=== PATIENT | male | born 1930 | race Caucasian/White ===

== ENCOUNTER → 2016-08-15 | Outpatient (CLI) | payer MEDICARE, OTHER ==
--- NOTE | 2016-08-16 05:49 | REP ---
ABDOMINAL SERIES: Supine and erect views of the abdomen are performed. There is no free air. There is no evidence of small bowel obstruction. There is scattered air throughout the GI tract. The colon is not significantly distended. Scattered vascular calcifications are present. There is curvilinear calcification in the region of the mid to distal abdominal aorta raising the possibility of abdominal aortic aneurysm. There are diffuse degenerative changes of the spine. An accompanying view of the chest demonstrates cardiomegaly. There are interstitial and alveolar opacities in each lung base representing infiltrates, either bibasilar pneumonic infiltrates or pulmonary edema. There do appear to be small pleural effusions. IMPRESSION: No evidence of free air or obstruction. Possible abdominal aortic aneurysm. In the chest, there is cardiomegaly with apparent bibasilar interstitial and alveolar infiltrates with small effusions. The findings may be on the basis of basilar pneumonic infiltrates or pulmonary edema. Unreviewed
== END ==
LOC: M ADAMS 15:42
PROVIDERS: ATTEND Physician Assistant Medical
DX: K59.01 Slow transit constipation (principal); I51.7 Cardiomegaly; J98.4 Other disorders of lung

== ENCOUNTER → 2016-08-15 | Outpatient (REF) | payer MEDICARE, OTHER ==
[2016-08-15 19:15] LABS: ALBUMIN 2.6 GM/DL (3.2-5.2); ALBUMIN/GLOBULIN RATIO 0.62 (1.00-1.93); ALKALINE PHOSPHATASE 162 U/L (45-117); ALT/SGPT 34 U/L (12-78); ANION GAP 12 MEQ/L (8-16); AST/SGOT 31 U/L (15-37); BILIRUBIN,TOTAL 0.5 MG/DL (0.2-1.0); BLOOD UREA NITROGEN 26 MG/DL (7-18); CALCIUM LEVEL 8.7 MG/DL (8.8-10.2); CARBON DIOXIDE LEVEL 29 MEQ/L (21-32); CHLORIDE LEVEL 97 MEQ/L (98-107); CREATININE FOR GFR 1.07 MG/DL (0.70-1.30); GLOMERULAR FILTRATION RATE > 60.0 (>35); GLUCOSE, FASTING 122 MG/DL (83-110); POTASSIUM SERUM 4.6 MEQ/L (3.5-5.1); SODIUM LEVEL 138 MEQ/L (136-145); TOTAL PROTEIN 6.8 GM/DL (6.4-8.2)
[2016-08-15 19:57] LABS: BASO # 0.1 K/mm3 (0.0-0.2); BASO % 0.7 % (0.0-1.0); EOS # 0.1 K/mm3 (0.0-0.50); EOS % 1.3 % (0.0-3.0); LARGE UNSTAINED CELL # 0.1 K/mm3 (0.0-0.4); LARGE UNSTAINED CELL % 1.1 % (0.0-4.0); LYMPH # 1.3 K/mm3 (1.5-4.5); LYMPH % 11.5 % (24.0-44.0); MEAN CORPUSCULAR HEMOGLOBIN 29.4 pg (27.0-33.0); MEAN CORPUSCULAR HGB CONC 30.5 g/dl (32.0-36.5); MEAN CORPUSCULAR VOLUME 96.4 fl (80.0-96.0); MONO # 0.7 K/mm3 (0.0-0.8); MONO % 6.8 % (0.0-5.0); NEUTROPHILS # 7.9 K/mm3 (1.8-7.7); NEUTROPHILS % 78.7 % (36.0-66.0); PLATELET COUNT, AUTOMATED 540 k/mm3 (150-450); RED CELL DISTRIBUTION WIDTH 13.2 % (11.5-14.5)
== END ==
LOC: M SFHCADAM 15:22
PROVIDERS: ATTEND Physician Assistant Medical
DX: K59.01 Slow transit constipation (principal); R35.8 Other polyuria; R41.0 Disorientation, unspecified

== ENCOUNTER 2016-08-18 11:11 | Inpatient (IN) | payer MEDICARE, OTHER ==
[~2016-08-18] VITALS: Ht 182.9 cm; Wt 110.8 kg
[2016-08-18 11:54] LABS: BASO % 0.2 % (0.0-1.0); EOS % 0.2 % (0.0-3.0); LARGE UNSTAINED CELL # 0.1 K/mm3 (0.0-0.4); LARGE UNSTAINED CELL % 1.1 % (0.0-4.0); LYMPH # 0.7 K/mm3 (1.5-4.5); LYMPH % 8.1 % (24.0-44.0); MEAN CORPUSCULAR HEMOGLOBIN 29.7 pg (27.0-33.0); MEAN CORPUSCULAR HGB CONC 31.2 g/dl (32.0-36.5); MEAN CORPUSCULAR VOLUME 95.3 fl (80.0-96.0); MONO # 0.4 K/mm3 (0.0-0.8); MONO % 4.6 % (0.0-5.0); NEUTROPHILS # 7.1 K/mm3 (1.8-7.7); NEUTROPHILS % 85.8 % (36.0-66.0); PLATELET COUNT, AUTOMATED 536 k/mm3 (150-450); RED CELL DISTRIBUTION WIDTH 12.3 % (11.5-14.5); WHITE BLOOD COUNT 8.3 K/mm3 (4.0-10.0)
[2016-08-18 12:17] LABS: ALBUMIN 2.5 GM/DL (3.2-5.2); ALBUMIN/GLOBULIN RATIO 0.54 (1.00-1.93); ALKALINE PHOSPHATASE 117 U/L (45-117); ALT/SGPT 25 U/L (12-78); ANION GAP 10 MEQ/L (8-16); AST/SGOT 19 U/L (15-37); BILIRUBIN,DIRECT 0.2 MG/DL (0.0-0.2); BILIRUBIN,TOTAL 0.5 MG/DL (0.2-1.0); BLOOD UREA NITROGEN 22 MG/DL (7-18); CALCIUM LEVEL 8.3 MG/DL (8.8-10.2); CARBON DIOXIDE LEVEL 31 MEQ/L (21-32); CHLORIDE LEVEL 99 MEQ/L (98-107); CREATININE FOR GFR 1.03 MG/DL (0.70-1.30); GLOMERULAR FILTRATION RATE > 60.0 (>35); GLUCOSE, FASTING 105 MG/DL (83-110); SODIUM LEVEL 140 MEQ/L (136-145); TOTAL PROTEIN 7.1 GM/DL (6.4-8.2)
--- NOTE | 2016-08-18 12:20 | REP ---
CT HEAD WITHOUT CONTRAST: HISTORY: Altered mental status. COMPARISON: MR dated 05/12/2003. Areas of decreased attentuation are present in the periventricular and subcortical white matter. This represents small vessel ischemic disease. There is no intraparenchymal hemorrhage, mass, or midline shift. The ventricular system and cortical sulci as well as subarachnoid space in the posterior fossa are dilated consistent with moderate volume loss. There is no extracerebral collection. The visualized sinuses are clear. IMPRESSION: 1. Small vessel ischemic disease. 2. Moderate volume loss. Signed by Theodore Turk MD 08/18/2016 12:34 P
--- NOTE | 2016-08-18 12:25 | REP ---
CHEST TWO VIEWS: HISTORY: Chest pain. COMPARISON: 06/29/2016 An increase in interstitial markings is present in the lower lobes consistent with chronic interstitial fibrosis. A small left pleural effusion is present. The cardiac silhouette is enlarged. The pulmonary vasculature is prominence. IMPRESSION: 1. Bibasilar chronic interstitial fibrosis. 2. Small left pleural effusion 3. Cardiomegaly. Signed by Theodore Turk MD 08/18/2016 12:34 P
[2016-08-18] MEDS ORDERED: METHY25TA PO (15:32)
[2016-08-18] MEDS ORDERED: INSUDET SC (15:32)
[2016-08-18] MEDS ORDERED: METF500T PO (15:32)
[2016-08-18] MEDS ORDERED: BENA25TA9 PO (15:32)
[2016-08-18] MEDS ORDERED: NITR4TASL SL (15:32)
[2016-08-18] MEDS ORDERED: SIMV10TA2 PO (15:32)
[2016-08-18] MEDS ORDERED: JANU100T PO (15:32)
[2016-08-18] MEDS ORDERED: ISOS120T4 PO (15:32)
[2016-08-18] MEDS ORDERED: METO25TAB PO (15:32)
[2016-08-18 16:23] LABS: AMPHETAMINES LEVEL URINE NEGATIVE (NEGATIVE); BENZODIAZEPINES URINE NEGATIVE (NEGATIVE); COCAINE METABOLITE URINE NEGATIVE (NEGATIVE); CONTROL LINE INT CTR LINE PRESENT; METHADONE URINE NEGATIVE (NEGATIVE); OPIATES URINE NEGATIVE (NEGATIVE); TRICYCLIC ANTIDEPRESS URINE NEGATIVE (NEGATIVE)
[2016-08-18] MEDS ORDERED: GLUCOSE 4 GM CHEW TABLET PO PRN (17:15)
[2016-08-18] MEDS ORDERED: DEXTROSE 50% 50 ML SYRINGE IV PRN (17:15)
[2016-08-18] MEDS ORDERED: GLUCAGON FOR INJ 1 MG VIAL (J1610) SC PRN (17:15)
[2016-08-18 18:15] LABS: INR 1.15
--- NOTE | 2016-08-18 19:31 | ECGEPIP ---
Stationary ECG Study [facility] - ED Test Date: 2016-08-18 Pat Name: ANAMARIA SOLARES Department: Room: - Gender: M Processing Associate: gloria : 1930 Requested By: Nicole Galan Order Number: [id number] Reading MD: Nicole Galan Measurements Intervals [place] Rate: 71 P: 18 CT: 159 QRS: 11 QRSD: 106 T: 42 QT: 406 QTc: 444 Interpretive Statements SINUS RHYTHM NSTTW ABNORMALITY LOW VOLTAGE LIMB Electronically Signed On 08-18-2016 19:30:54 EST by Nicole Galan
--- NOTE | 2016-08-18 20:13 | HPE ---
DATE OF ADMISSION: 08/18/2016 PRIMARY CARE PROVIDER: Sania James CHIEF COMPLAINT: Altered mental status. HISTORY OF THE PRESENT ILLNESS: Mr. Ortega is an 86-year-old male with a past medical history of uncontrolled diabetes, noncompliance, hypertension, who was brought in today by emergency medical services (EMS) after found to be down at home. The patient was reportedly in his normal state of health up until this week. This morning, after waking up at 7 or 8, noticed that he made some growling noises coming out from his mouth with tongue hanging out. Family had difficulty waking him up. Fingerstick glucose was checked at that time and was 45. EMS was immediately called and was given one amp of D50 which improved his fingerstick to 126. Reportedly has had similar episodes in the last 3 mornings, when he was found down and incoherent with his words. With each episode, after administration of either a donut, coffee or orange juice, he would perk up approximately 15 to 20 minutes later. The patient reportedly has been complaining of some sort of obstruction and because of concern for his obstruction, his oral intake has cut down significantly. Despite his decreased po intake, he continues to administer Levemir 130 units at nighttime along with his other hypoglycemic agents. Complains of headache; however, it is unclear whether this is new or chronic for him. The patient himself is a poor historian and is unable to offer any reliable history. Denies any chest pain, shortness of breath, fevers. Reports more chills recently in the last 2-3 days. No diarrhea, constipation, urinary issues. No sick contact. PAST MEDICAL HISTORY Type 2 diabetes. Hypertension. Medical noncompliance. Coronary artery disease, status post myocardial infarction ([place]), stent placement is unclear. Obesity. SURGICAL HISTORY: Appendectomy. Left thumb amputated. Cataract surgery. ALLERGIES: PENICILLIN hives. HOME MEDICATIONS: - Benadryl 25 mg by mouth nightly - Levemir 130 units subcu nightly - isosorbide mononitrate 120 mg by mouth daily - metformin 1000 mg by mouth twice a day - methyldopa 250 mg by mouth twice a day - metoprolol tartrate 25 mg by mouth twice a day - Nitrostat 0.4 sublingual as needed - Zocor 10 mg by mouth nightly - Januvia 100 mg by mouth daily There have not been any changes to his medications. FAMILY HISTORY: Mother from diabetes, hypertension, and heart disease. Father of unknown medical condition. SOCIAL HISTORY: The patient is a former smoker. He used to smoke for greater than 20 years two packs a day, quit more than 20 years ago. No alcohol or drug use. He lives at home with his . No pets. No recent travel. 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 REVIEW OF SYSTEMS: Unreliable due to the patient's altered mental status, though he denied any chest pain, shortness of breath, new cough, abnormal bleeding, bruising. Family also recently noticed the patient to be more edematous on his upper extremity. PHYSICAL EXAMINATION: VITAL SIGNS: Blood pressure highest in the emergency room (ER) 193/126, heart rate 84, respiratory rate 18, temperature 98.2, pulse oximetry 96% on room air. Body mass index (BMI) 32. GENERAL: The patient is lying in bed, approximately 30 degrees angle, comfortable, no acute respiratory distress. Family at bedside. Alert, awake, oriented to person, place but not time, thinks he is 66 years old but knows he is at [facility] and the president is Mendez. HEENT: Normocephalic, atraumatic. Moist oral mucosa. Edentulous. Appears to have some asymmetry of his face, though this reportedly is chronic for the patient, per family. Extraocular movements intact. NECK: Supple. Large neck. Could not appreciate jugular venous distention (JVD). CHEST: Symmetric chest rise. No accessory muscle use. Breath sounds did diminish with occasional crackle, most significant left lung base. HEART: Regular rate and rhythm. S1, S2 present. ABDOMEN: Obese but nontender, nondistended. Bowel sounds distant. No guarding, no rebound. Difficult to appreciate organomegaly secondary to body habitus. EXTREMITIES: He has anasarca, 2+ pitting. NEUROLOGICAL: Strength is 5/5, [id number] is delayed, heel-to-toe is delayed. DTRs 2/4. Sensory is intact. Negative Babinski. Did not assess gait. LABORATORY DATA: WBC 8.3, hemoglobin 11.4, hematocrit 36.7, changed compared to his baseline. Platelets 536. Sodium 140, potassium 4, chloride 99, carbon dioxide 31, BUN 22, creatinine 1.03, glucose 105, calcium 8.3. Liver profile normal. Ammonia level 20. Troponin first set is negative. TSH is normal 1.05. Albumin 2.5. Urine culture pending. UA: 2+ protein, trace ketone, 2+ urobilinogen, leukocyte esterase is trace. CT head showed small vessel ischemic disease, moderate volume loss. Chest x-ray showed chronic interstitial fibrosis with small left pleural effusion, cardiomegaly. IMPRESSION AND PLAN: Mr. Ortega is an 86-year-old male with past medical history of type 2 diabetes who was brought in due to altered mental status. 1. Encephalopathy. Etiology unclear. Could be due to his hypoglycemic episodes versus cerebrovascular accident versus infectious versus cardiac versus other. It is unclear why he has sudden change in his mentation in the last week causing him to not have a good appetite. So far, CT of the head was unrevealing. Check blood culture, urine culture for underlying infectious etiology though suspect that he likely does not have underlying urinary tract infection based upon his urine culture. Continue to trend troponin. Will continue to follow the patient closely in the progressive care unit. Neurologic checks. Fall precautions. 2. Type 2 diabetes with recurrent hypoglycemia. Despite not having a good appetite, he continued to take his Levemir 130 units nightly, which can or worsen his encephalopathy. Hold home dose hypoglycemic agent at this time. Continue insulin sliding scale and carbohydrate diet. His most recent hemoglobin A1c check was in June 2016. At that time, it was 10.9. 3. Anasarca. It is unclear whether or not he has any underlying liver disease. His albumin is low. We will check prealbumin level and also coagulation tests (coags). Reportedly this is new per family. Have also checked echocardiogram to further evaluate the cause for anasarca. 4. History of hypertension. Resume his home medication with hold parameters. 5. Hyperglycemia. Continue home dose of Zocor. 6. Noncompliance. Unfortunately will complicate medical management. 7. Obesity. Will complicate medical care. 8. Deep vein thrombosis (DVT) prophylaxis. Sequential compression device (SCD), thromboembolism deterrents (TEDs) and heparin. DISPOSITION: Due to the patient's condition, we expect his stay to be greater than two midnights. My preceptor for this patient encounter was Dr. Lee. The preceptor was physically present in the building during the encounter and was fully available. As needed, all aspects of the patient interview, examination, medical decision making process, and medical care plan development were reviewed and approved by the preceptor. The preceptor is aware and concurs with the plan as stated in the body of this note and will attest to such by his/her cosignature. MARYBETH
--- NOTE | 2016-08-18 20:31 | EDDOCDS ---
Nurse's Notes [facility] Name: Tomi Solares Age: 86 yrs Sex: Male : 1930 Arrival Date: 08/18/2016 Time: 11:11 Bed 19 Private MD: Sania James Diagnosis: Altered mental status, unspecified Presentation: 08/18 11:19 Presenting complaint: EMS states: "When we got to the house the pt was in bed. Family mb9 is questing if he has dementia. They said he was a diabetic and is usually high. We checked a sugar and got 50. We gave him 1 amp of D50 and the repeat sugar was 126. I just checked another sugar at 11 and is was 131.". Adult Sepsis Screening: Suicide/Homicide risk assessment- the patient denies having any suicidal and/or homicidal ideations and does not present with any other emotional, behavioral or mental health complaints. Status: Patient is not a service counselor or dependent. Transition of care: patient was not received from another setting of care. 11:19 Acuity: IRENE Level 3 mb9 11:19 Method Of Arrival: Ambulance mb9 19:56 Adult Sepsis Screening: Patient's respiratory rate is less than 22. Systolic blood mb9 pressure is greater than 100. Patient has a qSOFA score of 0- Negative Sepsis Screen. Triage Assessment: 11:25 General: Appears in no apparent distress, Behavior is cooperative. Neurological: Level mb9 of Consciousness is. Historical: - Allergies: PENICILLINS; - Home Meds: 1. Nitrostat 0.6 mg SL subl 1 tab every 5 minutes 2. isosorbide mononitrate 120 mg Oral Tb24 1 tab once daily (Last dose: 08/17/2016) 3. Januvia 100 mg oral tab 1 tab once daily (Last dose: 08/17/2016) 4. metformin 500 mg Oral Tb24 2 tabs 2 times per day (Last dose: 08/17/2016) 5. methyldopa 250 mg Oral tab 1 tab 2 times per day (Last dose: 08/17/2016) 6. metoprolol tartrate 25 mg Oral tab 1 tab 2 times per day (Last dose: 08/17/2016) 7. simvastatin 10 mg Oral tab 1 tab once daily (Last dose: 08/17/2016) 8. Levemir 100 unit/mL subcutaneous soln 130 unit daily (Last dose: 08/17/2016) - PMHx: CHF; Hypertension; Type 2 DM, poorly controlled; - PSHx: Appendectomy; - Family history: No immediate family members are acutely ill. - Social history: Smoking status: Patient states former smoker of tobacco. No barriers to communication noted, The patient speaks fluent Georgian. - : The pt / caregiver states he / she is not on anticoagulants. Home medication list is obtained from the facility MAR, Note pt appears confused. family on the way to the Er. will verify med list with them. - Exposure Risk Screening:: None identified. Screenin:54 Screening information is obtained from family members. Fall risk: At risk due to age. mb9 Assistance ADL's: Requires assistance with meal preparation, this assistance is provided by family members, housework, assistance is provided by family members, medication administration, assistance is provided by family members. Abuse/DV Screen: The patient / caregiver reports he/she is: not in a situation that causes fear, pain or injury. Nutritional screening: No deficits noted. home support is adequate. 19:56 Advance Directives: There is no active DNR order. mb9 Assessment: 11:53 General: family at the bedside reports pt has had a slow mental decline over the last mb9 month. family also reports pt has been reluctant to eat because he believes he has an intestinal blockage. family reports has been worked up for this and it was negative. family reports that even though he is not eating he still takes his insulin as ordered. . 13:00 Reassessment: Patient appears in no apparent distress at this time. Patient states mb9 symptoms have improved. General: Appears in no apparent distress, comfortable, Behavior is fussy. Cardiovascular: Rhythm is regular. Respiratory: Airway is patent Respiratory effort is even, unlabored. 13:58 Reassessment: Patient appears in no apparent distress at this time. Adult Sepsis mb9 Screening: The patient does not have new or worsening altered mentation. Patient's respiratory rate is less than 22. Systolic blood pressure is greater than 100. Patient has a qSOFA score of 0- Negative Sepsis Screen. General: Appears in no apparent distress, comfortable, Behavior is appropriate for age, cooperative. Respiratory: Airway is patent Respiratory effort is even, unlabored. 14:47 Reassessment: Patient appears in no apparent distress at this time. Patient states mb9 symptoms have improved. General: Appears in no apparent distress, comfortable, Behavior is appropriate for age, cooperative. Respiratory: Airway is patent Respiratory effort is even, unlabored. 15:49 Reassessment: Patient appears in no apparent distress at this time. Patient states mb9 symptoms have improved. General: Appears in no apparent distress, comfortable, Behavior is appropriate for age, cooperative. Respiratory: Airway is patent Respiratory effort is. 17:09 Reassessment: Patient appears in no apparent distress at this time. Patient states mb9 symptoms have improved. pt able to stand with max assist at the bedside. . Respiratory: Airway is patent Respiratory effort is even, unlabored. 19:54 Reassessment: Patient appears in no apparent distress at this time. Patient states mb9 symptoms have improved. Adult Sepsis Screening: The patient does not have new or worsening altered mentation. Patient's respiratory rate is less than 22. Systolic blood pressure is greater than 100. Patient has a qSOFA score of 0- Negative Sepsis Screen. General: Appears in no apparent distress, comfortable, Behavior is appropriate for age, cooperative. Respiratory: Airway is patent Respiratory effort is even, unlabored. Vital Signs: 11:28 BP 164 / 90 RA Sitting (auto/reg); Pulse 74; Resp 18; Temp 98.2(O); Pulse Ox 96% on jrd R/A; Weight 109.32 kg (R); Height 6 ft. 0 in. (182.88 cm) (R); 12:33 Pulse 84 MON; mb9 12:33 BP 193 / 126 (auto/); mb9 12:48 BP 178 / 104 (auto/); mb9 12:48 Pulse 78 MON; Resp 18; Pulse Ox 97% ; mb9 13:03 BP 194 / 113 (auto/); mb9 13:03 Pulse 70 MON; Pulse Ox 96% ; mb9 13:18 Pulse 72 MON; Pulse Ox 96% ; mb9 13:18 BP 180 / 107 (auto/); mb9 13:33 Pulse 76 MON; mb9 13:33 BP 185 / 108 (auto/); mb9 13:48 Pulse 72 MON; Pulse Ox 100% ; mb9 13:48 BP 184 / 99 (auto/); mb9 14:03 Pulse 74 MON; Pulse Ox 98% ; mb9 14:03 BP 175 / 98 (auto/); mb9 14:18 Pulse 76 MON; Pulse Ox 97% ; mb9 14:18 BP 178 / 91 (auto/); mb9 14:33 Pulse 74 MON; Pulse Ox 97% ; mb9 14:33 BP 179 / 88 (auto/); mb9 14:48 Pulse 78 MON; Pulse Ox 97% ; mb9 14:48 BP 177 / 94 (auto/); mb9 15:03 Pulse 78 MON; Pulse Ox 99% ; mb9 15:03 BP 194 / 93 (auto/); mb9 15:18 Pulse 72 MON; Pulse Ox 98% ; mb9 15:18 BP 187 / 95 (auto/); mb9 15:33 Pulse 84 MON; Pulse Ox 98% ; mb9 15:33 BP 172 / 78 (auto/); mb9 15:47 Pulse 90 MON; Pulse Ox 97% ; mb9 15:48 BP 167 / 86 (auto/); mb9 16:03 Pulse 78 MON; Pulse Ox 96% ; mb9 16:03 BP 139 / 79 (auto/); mb9 16:18 Pulse 80 MON; Pulse Ox 97% ; mb9 16:18 BP 142 / 74 (auto/); mb9 16:32 Pulse 80 MON; Pulse Ox 97% ; mb9 16:33 BP 146 / 77 (auto/); mb9 16:48 Pulse 78 MON; Pulse Ox 97% ; mb9 16:48 BP 135 / 73 (auto/); mb9 17:03 Pulse 90 MON; Pulse Ox 98% ; mb9 17:03 BP 166 / 84 (auto/); mb9 18:37 BP 157 / 90; Pulse 78; Resp 18; Temp 98; Pulse Ox 97% on R/A; ld5 19:09 BP 146 / 70 (auto/); lf1 19:09 Pulse 78 MON; Pulse Ox 95% ; lf1 19:32 BP 164 / 93 (auto/); mb9 19:32 Pulse 78 MON; Resp 18; Pulse Ox 97% ; mb9 20:22 Pulse 76 MON; Pulse Ox 96% ; lf1 11:28 Body Mass Index 32.69 (109.32 kg, 182.88 cm) jrd 11:28 Patient unable to give a pain scale rating jrd ED Course: 11:13 Patient visited by Araiza, Lauren, Hand Inserter Operator. lbd 11:13 Sania James PA-C is Private Physician. lbd 11:13 Patient moved to Waiting lbd 11:13 Patient moved to 19 lbd 11:20 Nicole Galan MD is Attending Physician. sd1 11:21 Triage Initiated mb9 11:22 Patient visited by Nicole Galan MD. sd1 11:29 Patient visited by Nahun Dukes PCA. jrd 11:32 EKG done. (by ED staff). Reviewed by Nicole Galan MD. nb2 11:38 Patient visited by Tejal Dior. nb2 11:55 Maintain field IV. Dressing intact. Good blood return noted. Site clean & dry. Gauge & mb9 site: 20 gauge left ac.. 12:36 Urine Culture Sent. jrd 12:36 UA Sent. jrd 13:02 CT Head Without Contrast Returned. EDMS 13:02 Chest, 2 View (pa\\E\\lat) Returned. EDMS 13:25 [facility] Payment Agreement was scanned into [employer] and attached to record. mm15 13:50 Patient visited by Tejal Dior. nb2 14:49 Patient visited by Esau Membreno RN. mb9 14:53 The patient / caregiver is instructed regarding the plan of care and ED course. pt mb9 given a boxed lunch. 15:15 Urine Toxicology Sent. mb9 15:16 Nghia Lee is Hospitalizing Provider. sd1 19:42 EKG-ADULT Returned. EDMS 19:44 Discontinued IV lock intact, bleeding controlled, pressure dressing applied, No mb9 redness/swelling at site. No procedures done that require assistance. 19:44 Inserted saline lock: 20 gauge in right forearm and blood collected. The patient mb9 tolerated the procedure well. Administered Medications: 13:30 Drug: NS 0.9% 1000 ml [sodium chloride 0.9 % injection solution] Route: IV; Rate: 150 mb9 mL/hr; Site: left antecubital; Point of Care Testing: Blood Glucose: 14:51 Blood Glucose: 69 mg/dL; mb9 14:51 Dr Sheridan aware. mb9 Ranges: Intake: 14:51 PO: 240.00ml (Juice); Total: 240.00ml. mb9 Output: 12:37 Urine: 440.00ml; Total: 440.00ml. jrd Order Results: Lab Order: CBC with Diff; SPEC'M 08/18/16 11:34 Test: WHITE BLOOD COUNT; Value: 8.3; Range: 4.0-10.0; Units: K/mm3; Status: F Test: RED BLOOD COUNT; Value: 3.85; Range: 4.30-6.10; Abnormal: Below low normal; Units: M/mm3; Status: F Test: HEMOGLOBIN; Value: 11.4; Range: 14.0-18.0; Abnormal: Below low normal; Units: g/dl; Status: F Test: HEMATOCRIT; Value: 36.7; Range: 42.0-52.0; Abnormal: Below low normal; Units: %; Status: F Test: MEAN CORPUSCULAR VOLUME; Value: 95.3; Range: 80.0-96.0; Units: fl; Status: F Test: MEAN CORPUSCULAR HEMOGLOBIN; Value: 29.7; Range: 27.0-33.0; Units: pg; Status: F Test: MEAN CORPUSCULAR HGB CONC; Value: 31.2; Range: 32.0-36.5; Abnormal: Below low normal; Units: g/dl; Status: F Test: RED CELL DISTRIBUTION WIDTH; Value: 12.3; Range: 11.5-14.5; Units: %; Status: F Test: PLATELET COUNT, AUTOMATED; Value: 536; Range: 150-450; Abnormal: Above high normal; Units: k/mm3; Status: F Test: NEUTROPHILS %; Value: 85.8; Range: 36.0-66.0; Abnormal: Above high normal; Units: %; Status: F Test: LYMPH %; Value: 8.1; Range: 24.0-44.0; Abnormal: Below low normal; Units: %; Status: F Test: MONO %; Value: 4.6; Range: 0.0-5.0; Units: %; Status: F Test: EOS %; Value: 0.2; Range: 0.0-3.0; Units: %; Status: F Test: BASO %; Value: 0.2; Range: 0.0-1.0; Units: %; Status: F Test: LARGE UNSTAINED CELL %; Value: 1.1; Range: 0.0-4.0; Units: %; Status: F Test: NEUTROPHILS #; Value: 7.1; Range: 1.8-7.7; Units: K/mm3; Status: F Test: LYMPH #; Value: 0.7; Range: 1.5-4.5; Abnormal: Below low normal; Units: K/mm3; Status: F Test: MONO #; Value: 0.4; Range: 0.0-0.8; Units: K/mm3; Status: F Test: EOS #; Value: 0.0; Range: 0.0-0.50; Units: K/mm3; Status: F Test: BASO #; Value: 0.0; Range: 0.0-0.2; Units: K/mm3; Status: F Test: LARGE UNSTAINED CELL #; Value: 0.1; Range: 0.0-0.4; Units: K/mm3; Status: F Lab Order: Cardiac Injury Profile; SPEC'M 08/18/16 11:34 Test: CPK CREATINE PHOSPHOKINASE; Value: 25; Range: 39-308; Abnormal: Below low normal; Units: U/L; Status: F Test: CK-MB VALUE MASS; Value: 1.0; Range: 0.0-3.6; Units: NG/ML; Status: F Test: MB/CK RELATIVE INDEX; Value: 4.00; Range: < OR =4; Status: F Test Note: ; DIAGNOSIS CRITERIA MMB ng/ml Relative Index (RI) NON-AMI < or = 5 N/A [place] > 5 < or = 4 AMI > 5 > 4 Lab Order: Liver Profile; SPEC'M 08/18/16 11:34 Test: AST/SGOT; Value: 19; Range: 15-37; Units: U/L; Status: F Test: ALT/SGPT; Value: 25; Range: 12-78; Units: U/L; Status: F Test: ALKALINE PHOSPHATASE; Value: 117; Range: 45-117; Units: U/L; Status: F Test: BILIRUBIN,TOTAL; Value: 0.5; Range: 0.2-1.0; Units: MG/DL; Status: F Test: BILIRUBIN,DIRECT; Value: 0.2; Range: 0.0-0.2; Units: MG/DL; Status: F Test: TOTAL PROTEIN; Value: 7.1; Range: 6.4-8.2; Units: GM/DL; Status: F Test: ALBUMIN; Value: 2.5; Range: 3.2-5.2; Abnormal: Below low normal; Units: GM/DL; Status: F Test: ALBUMIN/GLOBULIN RATIO; Value: 0.54; Range: 1.00-1.93; Abnormal: Below low normal; Status: F Lab Order: MED Profile; SPEC'M 08/18/16 11:34 Test: GLUCOSE, FASTING; Value: 105; Range: 83-110; Units: MG/DL; Status: F Test: BLOOD UREA NITROGEN; Value: 22; Range: 7-18; Abnormal: Above high normal; Units: MG/DL; Status: F Test: CREATININE FOR GFR; Value: 1.03; Range: 0.70-1.30; Units: MG/DL; Status: F Test: GLOMERULAR FILTRATION RATE; Value: > 60.0; Range: >35; Status: F Test: SODIUM LEVEL; Value: 140; Range: 136-145; Units: MEQ/L; Status: F Test: POTASSIUM SERUM; Value: 4.0; Range: 3.5-5.1; Units: MEQ/L; Status: F Test: CHLORIDE LEVEL; Value: 99; Range: 98-107; Units: MEQ/L; Status: F Test: CARBON DIOXIDE LEVEL; Value: 31; Range: 21-32; Units: MEQ/L; Status: F Test: ANION GAP; Value: 10; Range: 8-16; Units: MEQ/L; Status: F Test: CALCIUM LEVEL; Value: 8.3; Range: 8.8-10.2; Abnormal: Below low normal; Units: MG/DL; Status: F Test Note: ; Units are mL/min/1.73 m2 Chronic Kidney Disease Staging per NKF: Stage I & II GFR >=60 Normal to Mildly Decreased Stage III GFR 30-59 Moderately Decreased Stage IV GFR 15-29 Severely Decreased Stage V GFR <15 Very Little GFR Left ESRD GFR <15 on ELECTRIC MOTOR REPAIRMAN Lab Order: Thyroid Stimulating Hormone; SPEC'M 08/18/16 11:34 Test: THYROID STIMULATING HORMONE; Value: 1.050; Range: 0.358-3.740; Units: uIU/ML; Status: F Lab Order: Troponin; SPEC'M 08/18/16 11:34 Test: TROPONIN I; Value: < 0.02; Range: < 0.10; Units: NG/ML; Status: F Test Note: ; Troponin I Reference Interval for Siemens Myer LOCI: 99th Percentile= 0.00-0.045 ng/ml Risk Stratification: <= 0.10 ng/ml Decreased Risk for Adverse Clinical Events. 0.10-1.50 ng/ml Increased Risk for Adverse Clinical Events. Evaluation of additional criterion and/or repeat testing in 2-6 hours is suggested to rule out myocardial damage. >= 1.50 ng/ml Indicative of Myocardial Injury. Lab Order: UA; SPEC'M 08/18/16 12:36 Test: APPEARANCE, URINE; Value: CLEAR; Range: CLEAR; Status: F Test: COLOR, URINE; Value: YELLOW; Range: YELLOW; Status: F Test: PH,URINE; Value: 5.0; Range: 5.0-9.0; Units: UNITS; Status: F Test: SPECIFIC GRAVITY URINE AUTO; Value: 1.016; Range: 1.002-1.035; Status: F Test: PROTEIN, URINE AUTO; Value: 1+; Range: NEGATIVE; Abnormal: Above high normal; Units: mg/dL; Status: F Test: GLUCOSE, URINE (UA) AUTO; Value: NEGATIVE; Range: NEGATIVE; Units: mg/dL; Status: F Test: KETONE, URINE AUTO; Value: TRACE; Range: NEGATIVE; Abnormal: Above high normal; Units: mg/dL; Status: F Test: UROBILINOGEN, URINE AUTO; Value: 2.0; Range: 0.0-2.0; Abnormal: Above high normal; Units: mg/dL; Status: F Test: BILIRUBIN, URINE AUTO; Value: NEGATIVE; Range: NEGATIVE; Status: F Test: NITRITE, URINE AUTO; Value: NEGATIVE; Range: NEGATIVE; Status: F Test: LEUKOCYTE ESTERASE, URINE AUTO; Value: TRACE; Range: NEGATIVE; Abnormal: Above high normal; Status: F Test: BLOOD, URINE BLOOD; Value: NEGATIVE; Range: NEGATIVE; Status: F Test: WBC, URINE AUTO; Value: 1; Range: 0-3; Units: /HPF; Status: F Test: RBC, URINE AUTO; Value: 0; Range: 0-3; Units: /HPF; Status: F Test: BACTERIA, URINE AUTO; Value: NEGATIVE; Range: NEGATIVE; Status: F Test: SQUAMOUS EPITHELIAL CELL UR AU; Value: 0; Range: 0-6; Units: /HPF; Status: F Test: MUCUS, URINE; Value: SMALL; Range: NEGATIVE; Status: F Test: HYALINE CAST, URINE AUTO; Value: 0; Range: 0-1; Units: /LPF; Status: F Lab Order: Fingerstick Blood Sugar; SPEC' 08/18/16 14:36 Test: BEDSIDE GLUCOSE; Value: 69; Range: 83-110; Abnormal: Below low normal; Units: MG/DL; Status: F Lab Order: Ammonia ([place] Tube on Ice, Not [place]); [facility] 08/18/16 16:08 Test: AMMONIA; Value: 20; Range: <32; Units: uMOL/L; Status: F Lab Order: Urine Toxicology; [facility] 08/18/16 15:57 Test: AMPHETAMINES LEVEL URINE; Value: NEGATIVE; Range: NEGATIVE; Status: F Test: BARBITURATES URINE; Value: NEGATIVE; Range: NEGATIVE; Status: F Test: BENZODIAZEPINES URINE; Value: NEGATIVE; Range: NEGATIVE; Status: F Test: CANNABINOIDS URINE; Value: NEGATIVE; Range: NEGATIVE; Status: F Test: COCAINE METABOLITE URINE; Value: NEGATIVE; Range: NEGATIVE; Status: F Test: METHADONE URINE; Value: NEGATIVE; Range: NEGATIVE; Status: F Test: OPIATES URINE; Value: NEGATIVE; Range: NEGATIVE; Status: F Test: TRICYCLIC ANTIDEPRESS URINE; Value: NEGATIVE; Range: NEGATIVE; Status: F Test Note: ; ALL PRESUMPTIVE POSITIVE FINDINGS ARE UNCONFIRMED NORMAL VALUES THRESHOLD IN NG/ML AMPHETAMINES 1000 METHAMPHETAMINES 1000 BARBITURATES 300 BENZODIAZEPINES 300 CANNABINOIDS (THC) 50 COCAINE METABOLITE 300 METHADONE 300 OPIATES 300 PHENCYCLIDINE 25 TRICYCLIC ANTIDEPRESSANTS 1000 RESULTS ARE FOR MEDICAL PURPOSES ONLY. ALL URINE SPECIMENS WILL BE SAVED FOR 3 DAYS. IF CONFIRMATION OF A PRESUMPTIVE POSTIVE SCREEN RESULT IS DESIRED, CALL CHEMISTRY ([phone]) AND REQUEST URINE TO BE SENT TO REFERENCE LAB. FOR A LIST OF CLOSELY RELATED COMPOUNDS PLEASE CALL THE LAB. Lab Order: TROPONIN; SPEC'M 08/18/16 17:29 Test: TROPONIN I; Value: < 0.02; Range: < 0.10; Units: NG/ML; Status: F Test Note: ; Troponin I Reference Interval for Siemens Toney LOCI: 99th Percentile= 0.00-0.045 ng/ml Risk Stratification: <= 0.10 ng/ml Decreased Risk for Adverse Clinical Events. 0.10-1.50 ng/ml Increased Risk for Adverse Clinical Events. Evaluation of additional criterion and/or repeat testing in 2-6 hours is suggested to rule out myocardial damage. >= 1.50 ng/ml Indicative of Myocardial Injury. Lab Order: PROTHROMBIN TIME PROFILE\\E\\INR; SPEC'M 08/18/16 11:34 Test: PROTHROMBIN TIME; Value: 14.8; Range: 12.3-14.5; Abnormal: Above high normal; Units: SECONDS; Status: F Test: INR; Value: 1.15; Status: F Test Note: ; THERAPUTIC HUMAN INR VALUES INDICATIONS NORMAL RANGES PROPHYLAXIS/TREATMENT OF: VENOUS THROMBOSIS 2.0-3.0 PULMONARY EMBOLISM 2.0-3.0 PREVENTION OF SYSTEMIC EMBOLISM FROM: TISSUE HEART VALVES 2.0-3.0 ACUTE MYOCARDIAL INFARCTION 2.0-3.0 VALVULAR HEART DISEASE 2.0-3.0 ATRIAL FIBRILLATION 2.0-3.0 MECHANICAL VALVES(HIGH RISK) 2.5-3.5 RECURRENT MYOCARDIAL INFARCTION 2.5-3.5 Lab Order: PREALBUMIN; SPEC'M 08/18/16 17:29 Test: PREALBUMIN; Value: 10.9; Range: 20.0-40.0; Abnormal: Below low normal; Units: MG/DL; Status: F Lab Order: ETHYL ALCOHOL (ETHANOL); SPEC'M 08/18/16 18:36 Test: ETHYL ALCOHOL (ETHANOL); Value: < 0.003; Range: 0.000-0.010; Units: %; Status: F Radiology Order: CT Head Without Contrast Test: CT Head Without Contrast REASON FOR EXAMINATION: altered mental status; CT HEAD WITHOUT CONTRAST:; ; HISTORY: Altered mental status.; ; COMPARISON: MR dated 05/12/2003.; ; Areas of decreased attentuation are present in the periventricular and; subcortical white matter. This represents small vessel ischemic disease. There; is no intraparenchymal hemorrhage, mass, or midline shift. The ventricular; system and cortical sulci as well as subarachnoid space in the posterior fossa; are dilated consistent with moderate volume loss. There is no extracerebral; collection. The visualized sinuses are clear.; ; IMPRESSION:; ; 1. Small vessel ischemic disease.; ; 2. Moderate volume loss.; ; ; Signed by; Theodore Turk MD 08/18/2016 12:34 P; Radiology Order: EKG-ADULT Test: EKG-ADULT REASON FOR EXAMINATION: altered mental status; Stationary ECG Study; [facility] ED; ; Test Date: 2016-08-18; Pat Name: TOMI SOLARES Department:; Room: -; Gender: M Medical Sales Consultant: gloria; : 1930 Requested By: Nicole Galan; Order Number: [id number] Reading MD: Nicole Galan; Measurements; Intervals [place]; Rate: 71 P: 18; GA: 159 QRS: 11; QRSD: 106 T: 42; QT: 406; QTc: 444; Interpretive Statements; SINUS RHYTHM; NSTTW ABNORMALITY; LOW VOLTAGE LIMB; Electronically Signed On 08-18-2016 19:30:54 EST by Nicole Galan; Radiology Order: Chest, 2 View (pa\\E\\lat) Test: Chest, 2 View (pa\\E\\lat) REASON FOR EXAMINATION: Chest Pain; CHEST TWO VIEWS:; ; HISTORY: Chest pain.; ; COMPARISON: 06/29/2016; ; An increase in interstitial markings is present in the lower lobes consistent; with chronic interstitial fibrosis. A small left pleural effusion is present.; The cardiac silhouette is enlarged. The pulmonary vasculature is prominence.; ; IMPRESSION:; ; 1. Bibasilar chronic interstitial fibrosis.; ; 2. Small left pleural effusion; ; 3. Cardiomegaly.; ; ; Signed by; Theodore Turk MD 08/18/2016 12:34 P; Outcome: 15:16 Decision to Hospitalize by Provider. sd1 19:54 Discharge Assessment: Patient awake, alert and oriented x 3. No cognitive and/or mb9 functional deficits noted. Patient verbalized understanding of disposition instructions. patient administered narcotics - no. The following High Risk Discharge criteria are identified: None. Admitted to PCU. Condition: good Condition: stable Condition: improved. CT Study completed. Property :Personal belongings accompany Pt. 20:29 Patient left the ED. mb9 Signatures: Dispatcher [employer] EDNicole Benton MD MD sd1 Lauren Araiza, Hand Inserter Operator Unit lbd Nubia Alejandra RN RN lf1 Angela Mckinnon RN RN ld5 Carmen Wright mm15 Nahun Dukes, REDEVELOPMENT SPECIALIST REDEVELOPMENT SPECIALIST jrd Esau Membreno RN RN mb9 Tejal Dior nb2 Corrections: (The following items were deleted from the chart) 11:22 Home Meds: insulin- unknown - 130 units at night; mb9 mb9 11:22 Home Meds: isosorbide mononitrate 120 mg Oral Tb24 1 tab once daily; mb9 mb9 11:22 Home Meds: Januvia 100 mg oral tab 1 tab once daily; mb9 mb9 11:22 Home Meds: metformin 500 mg Oral Tb24 2 tabs 2 times per day; mb9 mb9 11:22 Home Meds: methyldopa 250 mg Oral tab 1 tab 2 times per day; mb9 mb9 11:22 Home Meds: metoprolol tartrate 25 mg Oral tab 1 tab 2 times per day; mb9 mb9 11:22 Home Meds: simvastatin 10 mg Oral tab 1 tab once daily; mb9 mb9 MTDD
--- NOTE | 2016-08-18 20:31 | EDDOCDS ---
Physician Documentation [facility] Name: Tomi Ortega Age: 86 yrs Sex: Male : 1930 Arrival Date: 08/18/2016 Time: 11:11 Bed 19 Private MD: Sania James Disposition: 08/18/16 15:16 Hospitalization ordered by Nghia Lee for Inpatient Admission. Preliminary diagnosis is Altered mental status, unspecified. - Bed requested for PCU. - Status is Inpatient Admission. mb9 - Condition is Stable. - Problem is new. - Symptoms are unchanged. Historical: - Allergies: PENICILLINS; - Home Meds: 1. Nitrostat 0.6 mg SL subl 1 tab every 5 minutes 2. isosorbide mononitrate 120 mg Oral Tb24 1 tab once daily (Last dose: 08/17/2016) 3. Januvia 100 mg oral tab 1 tab once daily (Last dose: 08/17/2016) 4. metformin 500 mg Oral Tb24 2 tabs 2 times per day (Last dose: 08/17/2016) 5. methyldopa 250 mg Oral tab 1 tab 2 times per day (Last dose: 08/17/2016) 6. metoprolol tartrate 25 mg Oral tab 1 tab 2 times per day (Last dose: 08/17/2016) 7. simvastatin 10 mg Oral tab 1 tab once daily (Last dose: 08/17/2016) 8. Levemir 100 unit/mL subcutaneous soln 130 unit daily (Last dose: 08/17/2016) - PMHx: CHF; Hypertension; Type 2 DM, poorly controlled; - PSHx: Appendectomy; - Family history: No immediate family members are acutely ill. - Social history: Smoking status: Patient states former smoker of tobacco. No barriers to communication noted, The patient speaks fluent [place]. - : The pt / caregiver states he / she is not on anticoagulants. Home medication list is obtained from the facility MAR, Note pt appears confused. family on the way to the Er. will verify med list with them. - Exposure Risk Screening:: None identified. Vital Signs: 08/18 11:28 BP 164 / 90 RA Sitting (auto/reg); Pulse 74; Resp 18; Temp 98.2(O); Pulse Ox 96% on jrd R/A; Weight 109.32 kg / 241.01 lbs (R); Height 6 ft. 0 in. (182.88 cm) (R); 12:33 Pulse 84 MON; mb9 12:33 BP 193 / 126 (auto/); mb9 12:48 BP 178 / 104 (auto/); mb9 12:48 Pulse 78 MON; Resp 18; Pulse Ox 97% ; mb9 13:03 BP 194 / 113 (auto/); mb9 13:03 Pulse 70 MON; Pulse Ox 96% ; mb9 13:18 Pulse 72 MON; Pulse Ox 96% ; mb9 13:18 BP 180 / 107 (auto/); mb9 13:33 Pulse 76 MON; mb9 13:33 BP 185 / 108 (auto/); mb9 13:48 Pulse 72 MON; Pulse Ox 100% ; mb9 13:48 BP 184 / 99 (auto/); mb9 14:03 Pulse 74 MON; Pulse Ox 98% ; mb9 14:03 BP 175 / 98 (auto/); mb9 14:18 Pulse 76 MON; Pulse Ox 97% ; mb9 14:18 BP 178 / 91 (auto/); mb9 14:33 Pulse 74 MON; Pulse Ox 97% ; mb9 14:33 BP 179 / 88 (auto/); mb9 14:48 Pulse 78 MON; Pulse Ox 97% ; mb9 14:48 BP 177 / 94 (auto/); mb9 15:03 Pulse 78 MON; Pulse Ox 99% ; mb9 15:03 BP 194 / 93 (auto/); mb9 15:18 Pulse 72 MON; Pulse Ox 98% ; mb9 15:18 BP 187 / 95 (auto/); mb9 15:33 Pulse 84 MON; Pulse Ox 98% ; mb9 15:33 BP 172 / 78 (auto/); mb9 15:47 Pulse 90 MON; Pulse Ox 97% ; mb9 15:48 BP 167 / 86 (auto/); mb9 16:03 Pulse 78 MON; Pulse Ox 96% ; mb9 16:03 BP 139 / 79 (auto/); mb9 16:18 Pulse 80 MON; Pulse Ox 97% ; mb9 16:18 BP 142 / 74 (auto/); mb9 16:32 Pulse 80 MON; Pulse Ox 97% ; mb9 16:33 BP 146 / 77 (auto/); mb9 16:48 Pulse 78 MON; Pulse Ox 97% ; mb9 16:48 BP 135 / 73 (auto/); mb9 17:03 Pulse 90 MON; Pulse Ox 98% ; mb9 17:03 BP 166 / 84 (auto/); mb9 18:37 BP 157 / 90; Pulse 78; Resp 18; Temp 98; Pulse Ox 97% on R/A; ld5 19:09 BP 146 / 70 (auto/); lf1 19:09 Pulse 78 MON; Pulse Ox 95% ; lf1 19:32 BP 164 / 93 (auto/); mb9 19:32 Pulse 78 MON; Resp 18; Pulse Ox 97% ; mb9 20:22 Pulse 76 MON; Pulse Ox 96% ; lf1 11:28 Body Mass Index 32.69 (109.32 kg, 182.88 cm) jrd 11:28 Patient unable to give a pain scale rating jrd MDM: 11:17 Casing Trimmer/Pulse Ox/q 15 min VS ordered. sd1 11:17 Accucheck ordered. sd1 11:17 IV Saline Lock ordered. sd1 11:17 Oxygen at 4L/Min NC or Home dosage ordered. sd1 11:17 Rhythm Strip to chart ordered. sd1 11:17 CBC with Diff Ordered. EDMS 11:17 Cardiac Injury Profile Ordered. EDMS 11:17 Liver Profile Ordered. EDMS 11:17 MED Profile Ordered. EDMS 11:17 Thyroid Stimulating Hormone Ordered. EDMS 11:17 Troponin Ordered. EDMS 11:18 CT Head Without Contrast Ordered. EDMS 11:18 ECG WITH READING ER PHYS+CARDIAG ordered. EDMS 11:28 UA Ordered. EDMS 11:28 Urine Culture Ordered. EDMS 11:30 Chest, 2 View (pa\E\lat) Ordered. EDMS 12:12 Financial registration complete. mm15 12:25 CBC with Diff Reviewed. sd1 12:25 Cardiac Injury Profile Reviewed. sd1 12:25 Liver Profile Reviewed. sd1 12:25 MED Profile Reviewed. sd1 12:25 Thyroid Stimulating Hormone Reviewed. sd1 12:25 Troponin Reviewed. sd1 12:26 NS 0.9% 1000 ml IV at 150 mL/hr continuous ordered. sd1 13:19 UA Reviewed. sd1 13:19 CT Head Without Contrast Reviewed. sd1 13:19 Chest, 2 View (pa\E\lat) Reviewed. sd1 13:25 [facility] Payment Agreement was scanned into [employer] and attached to record. mm15 14:52 Fingerstick Blood Sugar Reviewed. sd1 15:02 Ammonia ([place] Tube on Ice, Not [place]a [place]) Ordered. EDMS 15:02 BED REQUEST+ADM ordered. EDMS 15:04 Urine Toxicology Ordered. EDMS 17:17 PHYSICAL THERAPY EVAL & TREAT ordered. EDMS 17:18 CONSISTENT CARBOHYDRATES ordered. EDMS 17:19 TROPONIN Ordered. EDMS 17:19 TROPONIN Ordered. EDMS 17:48 PROTHROMBIN TIME PROFILE\E\INR Ordered. EDMS 17:49 Admission / Observation Status ordered. EDMS 17:52 ECHOCARD,DOPPLER/COLOR FLOW ordered. EDMS 18:05 PREALBUMIN Ordered. EDMS 18:17 BLOOD CULTURES Ordered. EDMS 18:17 BLOOD CULTURES Ordered. EDMS 18:27 DRUG EVAL TOXICOLOGY ED ONLY Ordered. EDMS 18:27 ETHYL ALCOHOL (ETHANOL) Ordered. EDMS 19:33 COMPLETE BLOOD COUNT Ordered. EDMS 19:33 BASIC METABOLIC PROFILE Ordered. EDMS Point of Care Testing: Blood Glucose: 14:51 Blood Glucose: 69 mg/dL; mb9 14:51 Dr Sheridan aware. mb9 Ranges: Administered Medications: 13:30 Drug: NS 0.9% 1000 ml [sodium chloride 0.9 % injection solution] Route: IV; Rate: 150 mb9 mL/hr; Site: left antecubital; Signatures: Dispatcher [employer] [facility] Nicole Galan MD MD sd1 Lorraine Bernard RN RN Carmen Thomas mm15 Esau MembrenoRN RN mb9 The chart was reviewed and I authenticate all verbal orders and agree with the evaluation and treatment provided.Corrections: (The following items were deleted from the chart) 11:53 11:22 Home Meds: insulin- unknown - 130 units at night; mb9 mb9 11:53 11:22 Home Meds: isosorbide mononitrate 120 mg Oral Tb24 1 tab once daily; mb9 mb9 :53 11:22 Home Meds: Januvia 100 mg oral tab 1 tab once daily; mb9 mb9 11:53 11:22 Home Meds: metformin 500 mg Oral Tb24 2 tabs 2 times per day; devorah9 mb9 :53 11:22 Home Meds: methyldopa 250 mg Oral tab 1 tab 2 times per day; mb9 mb9 11:53 11:22 Home Meds: metoprolol tartrate 25 mg Oral tab 1 tab 2 times per day; mb9 mb9 11:53 11:22 Home Meds: simvastatin 10 mg Oral tab 1 tab once daily; mb9 mb9 18:05 17:48 PREALBUMIN ordered. EDMS EDMS 19:13 17:52 MRI Brain without Contrast ordered. EDMS EDMS Attachments: 13:25 [facility] Payment Agreement mm15 [facility]
[2016-08-18 20:35] VITALS: BP 182/92
[2016-08-18] MEDS: HumaLOG INSULIN (NovoLOG) PER UNIT SC SCH (20:56)
[2016-08-18] MEDS: METOPROLOL TART 25 MG TABLET PO SCH (22:31)
[2016-08-18] MEDS: METHYLDOPA 250 MG TAB PO SCH (22:31)
[2016-08-18] MEDS: SIMVASTATIN 10 MG TAB PO SCH (22:31)
[2016-08-18] MEDS: HEPARIN SOD (PORCINE) 5000 UNITS/ML VIAL SQ SCH (22:32)
[2016-08-19] VITALS (7 sets, daily range): BP systolic 100–172; BP diastolic 54–84
[2016-08-19] MEDS ORDERED: ACETAMINOPHEN TAB 650MG DOSE (2X325MG) PO ONE (04:15)
[2016-08-19 05:23] LABS: MEAN CORPUSCULAR HEMOGLOBIN 29.3 pg (27.0-33.0); MEAN CORPUSCULAR HGB CONC 31.1 g/dl (32.0-36.5); MEAN CORPUSCULAR VOLUME 94.3 fl (80.0-96.0); RED CELL DISTRIBUTION WIDTH 12.5 % (11.5-14.5); WHITE BLOOD COUNT 7.8 K/mm3 (4.0-10.0)
[2016-08-19 05:45] LABS: ANION GAP 11 MEQ/L (8-16); BLOOD UREA NITROGEN 15 MG/DL (7-18); CALCIUM LEVEL 8.1 MG/DL (8.8-10.2); CARBON DIOXIDE LEVEL 27 MEQ/L (21-32); CHLORIDE LEVEL 97 MEQ/L (98-107); GLOMERULAR FILTRATION RATE > 60.0 (>35); GLUCOSE, FASTING 214 MG/DL (83-110); POTASSIUM SERUM 4.1 MEQ/L (3.5-5.1); SODIUM LEVEL 135 MEQ/L (136-145)
[2016-08-19] MEDS: HEPARIN SOD (PORCINE) 5000 UNITS/ML VIAL SQ SCH ×2 (09:00→21:47)
[2016-08-19] MEDS: METHYLDOPA 250 MG TAB PO SCH ×2 (09:42→21:45)
[2016-08-19] MEDS: ISOSORBIDE MON. (IMDUR) 60 MG XR TAB PO SCH (09:42)
[2016-08-19] MEDS: HumaLOG INSULIN (NovoLOG) PER UNIT SC SCH ×4 (09:43→21:46)
[2016-08-19] MEDS: METOPROLOL TART 25 MG TABLET PO SCH ×2 (09:43→21:46)
--- NOTE | 2016-08-19 09:46 | IPNPDOC ---
Assessment/Plan Date Seen The patient was seen on 08/19/16. Family Medicine Attending Note: I saw and examined Mr. Ortega, discussed with AKIKO Garcia. Agree with their note as documented. Mr. Ortega was seen with family this evening. He seemed to be doing quite well at this time. He has a home safety evaluation scheduled for tomorrow. If he is able to pass that, I would prefer we discharge him home tomorrow as this gives his family two days to get him settled in before his son needs to go back to work. If he is not able to pass a home safety evaluation, we will have to discuss short-term rehabilitation placement. 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 This is been progressive for over one month now, and is likely related to advancing dementia. He has a long h/o uncontrolled DM2 - insulin dep, d/t noncompliance with diet and medication, most recent A1c 10.9, which is close to baseline for pt. Ammonia nl, PT 14.8, mildly elevated, INR 1.15. no known liver disease. Cld consider obtaining US. (2) DM2 (diabetes mellitus, type 2) Status: Chronic Problem Specific Plan: Monitor Clinically Problem Text: Long acting insulin held. SSI ordered. Pt with poor appetite. Will need to be monitor closely. His will need diabetic teaching if he goes home, both on glucometer use, insulin administration, and diet. (3) Dementia Status: Chronic Response to Treatment: Worse Problem Specific Plan: Monitor Clinically Problem Text: I think progressive dementia is the most likely etiology of his symptoms. Will monitor him the next couple days, especially because we can't be sure what he has been taking for insulin and if there is potential some hypoglycemia contributing. He will at the very least need additional home care , if not placement. PFS consult placed. (4) Anasarca Status: Acute Discussed With: Patient Problem Specific Plan: Monitor Clinically Problem Text: I saw him on 08/17 and he had minimal LE edema, it is certainly more significant today. INR 11.5 PT14.8, (5) Altered mental status Status: Acute Problem Text: see above. Plan / VTE VTE Prophylaxis Ordered?: Yes Plan Anticipated Discharge: Home (tomorrow if he is able to pass his home safety evaluation), Sub Acute Rehab (tomorrow if he is not able to pass his home safety evaluation) Subjective Review of Systems CC/HPI Pt admitted overnight for confusion at home. I have seen in twice in the office for this this week. He is fixated on his bowels and being obstructed. His family has been monitoring his BMs he is going regularly although small amounts. Since he became fixated on his bowels, he has had limited appetite, because he is afraid of making the problem worse. He has been noncompliant with his insulin and diet for years. He takes his insulin when he wants to at the doses that he wants to. He also hasn't been checking his FSBS in years. I provided a new RX on Sunday for a glucometer, bc his son and dgt in law were unable to find one in the home and his stated she hadn't seen him with one in years. She has just started monitoring his medications more because of his spells of confusion. She hasn't been giving him his insulin. He has taken some falls at home, she has attributed this to getting out of bed too fast in the morning. He was also in the office about 1 month ago with his dgt, at that time the pt had been having mood swings, tearful at times to highly elated, and excitable. Diffiultly remaining on task. He started Zoloft 25 mg daily at that time and by Sunday this week his moods were no longer highs and lows, but mostly low/ flat. No longer frequently tearful. General: Denies: Fatigue Constitutional: Denies: Chills, Fever ENT: Denies: Head Aches Pulmonary: Denies: Cough, Dyspnea Cardiovascular: Denies: Chest Pain, Palpitations Gastrointestinal: Denies: Nausea, Vomiting Neurological: Reports: Weakness Psych: Reports: Depression Objective Physical Examination General Exam: Positive: Alert, No Acute Distress ENT Exam: Positive: Mucous membr. moist/pink Chest Exam: Positive: Clear to auscultation, Normal air movement Heart Exam: Positive: Normal S1, Normal S2, Rate Normal Abdomen Exam: Positive: Normal bowel sounds, Soft, Negative: Tenderness Extremity Exam: Positive: Edema (1-2 mm pitting BLE.) Neuro Exam: Positive: Normal Speech Psych Exam: Negative: Oriented x 3 (He recognizes me when I walk in the room, he knows where he is, believes the years is 2013, oriented to person. He doesn' t recall the BM he had about 30 m prior to my arrival.) Vital Signs/I&O Vital Signs Date Time Temp Pulse Resp B/P Pulse Ox O2 Delivery O2 Flow Rate FiO2 08/19/16 07:05 95.1 76 20 128/79 92 Room Air 08/19/16 04:00 2.0 I&O- Last 24 Hours up to 6 AM 08/19/16 06:00 Intake Total 600 ml Output Total 875 ml Balance -275 ml Laboratory Data Labs 24H Laboratory Tests 2 08/18/16 11:34: Aspartate Amino Transf (AST/SGOT) 19, Alanine Aminotransferase (ALT/SGPT) 25, Alkaline Phosphatase 117, Total Bilirubin 0.5, Direct Bilirubin 0.2, Albumin 2.5L, Albumin/Globulin Ratio 0.54L, Anion Gap 10, White Blood Count 8.3, Red Blood Count 3.85L, Hemoglobin 11.4L, Hematocrit 36.7L, Mean Corpuscular Volume 95.3, Mean Corpuscular Hemoglobin 29.7, Mean Corpuscular Hemoglobin Concent 31.2L, Red Cell Distribution Width 12.3, Platelet Count 536H, Neutrophils (%) ( Auto) 85.8H, Lymphocytes (%) (Auto) 8.1L, Monocytes (%) (Auto) 4.6, Eosinophils (%) (Auto) 0.2, Basophils (%) (Auto) 0.2, Neutrophils # (Auto) 7.1, Lymphocytes # (Auto) 0.7L, Monocytes # (Auto) 0.4, Eosinophils # (Auto) 0.0, Basophils # ( Auto) 0.0, Calcium Level 8.3L, Creatine Kinase MB 1.0, Creatine Kinase MB Relative Index 4.00, Glomerular Filtration Rate > 60.0, Large Unclassified Cells # 0.1, Large Unclassified Cells % 1.1, Prothromb Time International Ratio 1.15, Prothrombin Time 14.8H, Thyroid Stimulating Hormone (TSH) 1.050, Total Creatine Kinase 25L, Total Protein 7.1, Troponin I < 0.02 08/18/16 12:36: Urine Amorphous Sediment , Urine Appearance CLEAR, Urine Color YELLOW, Urine pH 5.0, Urine Specific [place] 1.016, Urine Protein 1+H, Urine Glucose (UA) NEGATIVE, Urine Ketones TRACEH, Urine Urobilinogen 2.0H, Urine Bilirubin NEGATIVE, Urine Leukocyte Esterase TRACEH, Urine Bacteria (Auto) NEGATIVE, Urine Blood NEGATIVE, Urine Calcium Carbonate Cryst(Auto) , Urine Calcium Oxalate Cryst (Auto) , Urine Calcium Phosphate Erica (Auto) , Urine Cellular Casts , Urine Cystine Crystals , Urine Granular Casts (Auto) , Urine Hyaline Casts (Auto) 0, Urine Leucine Crystals , Urine Mucus (Auto) SMALL, Urine Nitrite NEGATIVE, Urine Oval Fat Bodies (Auto) , Urine RBC (Auto) 0, Urine Renal Epithelial Cells , Urine Sperm (Auto) , Urine Squamous Epithelial Cells 0 , Urine Transitional Epithelial Cells , Urine Trichomonas (Auto) , Urine Triple Phosphate Cryst (Auto) , Urine Tyrosine Crystals , Urine Uric Acid Crystals ( Auto) , Urine WBC (Auto) 1, Urine Waxy Casts (Auto) , Urine Yeast-Like Cells ( Auto) 08/18/16 14:36: Bedside Glucose (Misc Panel) 69L 08/18/16 15:57: Urine Amphetamine Level NEGATIVE, Urine Benzodiazepines Screen NEGATIVE, Urine Cannabinoids NEGATIVE, Urine Cocaine Metabolite NEGATIVE, Urine Opiates Screen NEGATIVE, Urine Barbiturates, Qualitative NEGATIVE, Urine Methadone Screen NEGATIVE, Urine Tricyclic Antidepressants NEGATIVE 08/18/16 16:08: Ammonia 20 08/18/16 17:29: Prealbumin 10.9L, Troponin I < 0.02 08/18/16 18:36: Ethyl Alcohol Level < 0.003 08/18/16 20:51: Bedside Glucose (Misc Panel) 203H 08/18/16 23:36: Troponin I < 0.02 08/19/16 04:56: Anion Gap 11, Blood Urea Nitrogen 15, Creatinine 0.90, Sodium Level 135L, Potassium Level 4.1, Chloride Level 97L, Carbon Dioxide Level 27, Calcium Level 8.1L, Glomerular Filtration Rate > 60.0 CBC/BMP Laboratory Tests 08/18/16 11:34 Red Blood Count 3.85 L, Mean Corpuscular Volume 95.3, Mean Corpuscular Hemoglobin 29.7, Mean Corpuscular Hemoglobin Concent 31.2 L, Red Cell Distribution Width 12.3, Neutrophils (%) (Auto) 85.8 H, Lymphocytes (%) (Auto) 8.1 L, Monocytes (%) (Auto) 4.6, Eosinophils (%) (Auto) 0.2, Basophils (%) (Auto ) 0.2, Neutrophils # (Auto) 7.1, Lymphocytes # (Auto) 0.7 L, Monocytes # (Auto) 0.4, Eosinophils # (Auto) 0.0, Basophils # (Auto) 0.0 08/19/16 04:56 Red Blood Count 3.63 L, Mean Corpuscular Volume 94.3, Mean Corpuscular Hemoglobin 29.3, Mean Corpuscular Hemoglobin Concent 31.1 L, Red Cell Distribution Width 12.5, Calcium Level 8.1 L FSBS Laboratory Tests Test 08/18/16 14:36 08/18/16 20:51 Range/Units Bedside Glucose (Misc Panel) 69 203 83-110 MG/DL Microbiology Microbiology 08/18/16 Blood Culture, Received Pending 08/18/16 Blood Culture, Received Pending 08/18/16 Urine Culture - Final, Complete DIMITRI FLORES PA-C Aug 19, 2016 09:46 Austin Mckenzie MD Aug 19, 2016 22:34
[2016-08-19] MEDS ORDERED: diphenhydrAMINE 50 MG CAP PO SCH (21:00)
[2016-08-19] MEDS: SIMVASTATIN 10 MG TAB PO SCH (21:46)
[2016-08-20 04:00] VITALS: BP 122/60
[2016-08-20 08:00] VITALS: BP 134/66
[2016-08-20] MEDS: HumaLOG INSULIN (NovoLOG) PER UNIT SC SCH ×2 (08:18→12:39)
[2016-08-20 08:19] VITALS: BP 134/66
[2016-08-20] MEDS: HEPARIN SOD (PORCINE) 5000 UNITS/ML VIAL SQ SCH (08:19)
[2016-08-20] MEDS: METOPROLOL TART 25 MG TABLET PO SCH (08:19)
[2016-08-20] MEDS: METHYLDOPA 250 MG TAB PO SCH (08:19)
[2016-08-20] MEDS: ISOSORBIDE MON. (IMDUR) 60 MG XR TAB PO SCH (08:19)
--- NOTE | 2016-08-20 09:18 | IPNPDOC ---
Assessment/Plan Date Seen The patient was seen on 08/20/16. Family Medicine Attending Note: I saw and examined Mr. Ortega, discussed with AKIKO Garcia. Agree with their note as documented. By the time I saw Mr. Ortega he had passed his home safety evaluation. I discharged him. Please see the dictated discharge summary for full details. 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 This is been progressive for over one month now, and is likely related to advancing dementia. He has a long h/o uncontrolled DM2 - insulin dep, d/t noncompliance with diet and medication, most recent A1c 10.9, which is close to baseline for pt. Ammonia nl, PT 14.8, mildly elevated, INR 1.15. no known liver disease. Cld consider obtaining US. 08/20 - I believe his confusion/MS is at baseline. (2) DM2 (diabetes mellitus, type 2) Status: Chronic Problem Specific Plan: Monitor Clinically Problem Text: 08/19 Long acting insulin held. SSI ordered. Pt with poor appetite. Will need to be monitor closely. His will need diabetic teaching if he goes home, both on glucometer use, insulin administration, and diet. 08/20 - Will start Levemir 10 units tonight, cont to monitor FSBS. (3) Dementia Status: Chronic Response to Treatment: Worse Problem Specific Plan: Monitor Clinically Problem Text: I think progressive dementia is the most likely etiology of his symptoms. Will monitor him the next couple days, especially because we can't be sure what he has been taking for insulin and if there is potential some hypoglycemia contributing. He will at the very least need additional home care , if not placement. PFS consult placed. 08/19 PT - Not safe (4) Anasarca Status: Acute Discussed With: Patient Problem Specific Plan: Monitor Clinically Problem Text: I saw him on 08/17 and he had minimal LE edema, it is certainly more significant today. INR 11.5 PT14.8, (5) Altered mental status Status: Acute Problem Text: see above. Plan / VTE VTE Prophylaxis Ordered?: Yes Plan Anticipated Discharge: Home (when he is able to pass his home safety evaluation ), Sub Acute Rehab (tomorrow if he is not able to pass his home safety evaluation) Disposition transfer to the floor today. Subjective Review of Systems CC/HPI Pt without new concerns. He seems quite happy to have the nursing staff tending to him. He states that he slept well last night. His family would like to bring him home. General: Denies: Fatigue Constitutional: Denies: Chills, Fever ENT: Denies: Ear Pain, Head Aches Skin: Denies: Lesions, Rash Pulmonary: Denies: Cough, Dyspnea Gastrointestinal: Denies: Diarrhea, Nausea, Vomiting Genitourinary: Denies: Dysuria, Frequency Neurological: Reports: Weakness Psych: Reports: Mood Normal Objective Physical Examination General Exam: Positive: Alert, No Acute Distress ENT Exam: Positive: Mucous membr. moist/pink Chest Exam: Positive: Clear to auscultation, Normal air movement Heart Exam: Positive: Normal S1, Normal S2, Rate Normal Abdomen Exam: Positive: Normal bowel sounds, Soft, Negative: Tenderness Extremity Exam: Positive: Edema (1 mm pitting pretibial edema BLE, 2 mm pedal edema B) Neuro Exam: Positive: Normal Speech Psych Exam: Negative: Oriented x 3 (He recognizes me when I walk in the room, he knows where he is, believes the is 2013, oriented to person. He doesn' t recall the BM he had about 30 m prior to my arrival.) Vital Signs/I&O Vital Signs Date Time Temp Pulse Resp B/P Pulse Ox O2 Delivery O2 Flow Rate FiO2 08/20/16 08:19 73 134/66 08/20/16 04:00 Room Air 08/20/16 04:00 95.6 18 92 08/19/16 04:00 2.0 I&O- Last 24 Hours up to 6 AM 08/20/16 05:59 Intake Total 1925 ml Output Total 350 ml Balance 1575 ml Laboratory Data Labs 24H Laboratory Tests 2 08/19/16 11:42: Bedside Glucose (Misc Panel) 232H 08/19/16 17:03: Bedside Glucose (Misc Panel) 146H 08/19/16 21:01: Bedside Glucose (Misc Panel) 268H 08/20/16 06:55: Bedside Glucose (Misc Panel) 241H FSBS Laboratory Tests Test 08/19/16 11:42 08/19/16 17:03 08/19/16 21:01 08/20/16 06:55 Range/Units Bedside Glucose (Misc Panel) 232 146 268 241 83-110 MG/DL Microbiology Microbiology 08/18/16 Blood Culture - Preliminary, Resulted No growth after 24 hours . All specim... 08/18/16 Blood Culture - Preliminary, Resulted No growth after 24 hours . All specim... 08/18/16 Urine Culture - Final, Complete DIMITRI FLORES PA-C Aug 20, 2016 09:18 Austin Mckenzie MD Aug 20, 2016 20:29
[2016-08-20] MEDS ORDERED: LEVE1INJ5 SC (15:00)
[2016-08-20] MEDS ORDERED: LEVEMIR (INSULIN DETEMIR) 1 UNITS/0.01ML SC SCH (21:00)
--- NOTE | 2016-08-20 21:31 | EDDOCDS ---
Physician Documentation [facility] Name: Tomi Ortega Age: 86 yrs Sex: Male : 1930 Arrival Date: 08/18/2016 Time: 11:11 Bed 19 Private MD: Sania James Disposition: 08/18/16 15:16 Hospitalization ordered by Nghia Lee for Inpatient Admission. Preliminary diagnosis is Altered mental status, unspecified. - Bed requested for PCU. - Status is Inpatient Admission. mb9 - Condition is Stable. - Problem is new. - Symptoms are unchanged. Historical: - Allergies: PENICILLINS; - Home Meds: 1. Nitrostat 0.6 mg SL subl 1 tab every 5 minutes 2. isosorbide mononitrate 120 mg Oral Tb24 1 tab once daily (Last dose: 08/17/2016) 3. Januvia 100 mg oral tab 1 tab once daily (Last dose: 08/17/2016) 4. metformin 500 mg Oral Tb24 2 tabs 2 times per day (Last dose: 08/17/2016) 5. methyldopa 250 mg Oral tab 1 tab 2 times per day (Last dose: 08/17/2016) 6. metoprolol tartrate 25 mg Oral tab 1 tab 2 times per day (Last dose: 08/17/2016) 7. simvastatin 10 mg Oral tab 1 tab once daily (Last dose: 08/17/2016) 8. Levemir 100 unit/mL subcutaneous soln 130 unit daily (Last dose: 08/17/2016) - PMHx: CHF; Hypertension; Type 2 DM, poorly controlled; - PSHx: Appendectomy; - Family history: No immediate family members are acutely ill. - Social history: Smoking status: Patient states former smoker of tobacco. No barriers to communication noted, The patient speaks fluent [place]. - : The pt / caregiver states he / she is not on anticoagulants. Home medication list is obtained from the facility MAR, Note pt appears confused. family on the way to the Er. will verify med list with them. - Exposure Risk Screening:: None identified. Vital Signs: 08/18 11:28 BP 164 / 90 RA Sitting (auto/reg); Pulse 74; Resp 18; Temp 98.2(O); Pulse Ox 96% on jrd R/A; Weight 109.32 kg / 241.01 lbs (R); Height 6 ft. 0 in. (182.88 cm) (R); 12:33 Pulse 84 MON; mb9 12:33 BP 193 / 126 (auto/); mb9 12:48 BP 178 / 104 (auto/); mb9 12:48 Pulse 78 MON; Resp 18; Pulse Ox 97% ; mb9 13:03 BP 194 / 113 (auto/); mb9 13:03 Pulse 70 MON; Pulse Ox 96% ; mb9 13:18 Pulse 72 MON; Pulse Ox 96% ; mb9 13:18 BP 180 / 107 (auto/); mb9 13:33 Pulse 76 MON; mb9 13:33 BP 185 / 108 (auto/); mb9 13:48 Pulse 72 MON; Pulse Ox 100% ; mb9 13:48 BP 184 / 99 (auto/); mb9 14:03 Pulse 74 MON; Pulse Ox 98% ; mb9 14:03 BP 175 / 98 (auto/); mb9 14:18 Pulse 76 MON; Pulse Ox 97% ; mb9 14:18 BP 178 / 91 (auto/); mb9 14:33 Pulse 74 MON; Pulse Ox 97% ; mb9 14:33 BP 179 / 88 (auto/); mb9 14:48 Pulse 78 MON; Pulse Ox 97% ; mb9 14:48 BP 177 / 94 (auto/); mb9 15:03 Pulse 78 MON; Pulse Ox 99% ; mb9 15:03 BP 194 / 93 (auto/); mb9 15:18 Pulse 72 MON; Pulse Ox 98% ; mb9 15:18 BP 187 / 95 (auto/); mb9 15:33 Pulse 84 MON; Pulse Ox 98% ; mb9 15:33 BP 172 / 78 (auto/); mb9 15:47 Pulse 90 MON; Pulse Ox 97% ; mb9 15:48 BP 167 / 86 (auto/); mb9 16:03 Pulse 78 MON; Pulse Ox 96% ; mb9 16:03 BP 139 / 79 (auto/); mb9 16:18 Pulse 80 MON; Pulse Ox 97% ; mb9 16:18 BP 142 / 74 (auto/); mb9 16:32 Pulse 80 MON; Pulse Ox 97% ; mb9 16:33 BP 146 / 77 (auto/); mb9 16:48 Pulse 78 MON; Pulse Ox 97% ; mb9 16:48 BP 135 / 73 (auto/); mb9 17:03 Pulse 90 MON; Pulse Ox 98% ; mb9 17:03 BP 166 / 84 (auto/); mb9 18:37 BP 157 / 90; Pulse 78; Resp 18; Temp 98; Pulse Ox 97% on R/A; ld5 19:09 BP 146 / 70 (auto/); lf1 19:09 Pulse 78 MON; Pulse Ox 95% ; lf1 19:32 BP 164 / 93 (auto/); mb9 19:32 Pulse 78 MON; Resp 18; Pulse Ox 97% ; mb9 20:22 Pulse 76 MON; Pulse Ox 96% ; lf1 11:28 Body Mass Index 32.69 (109.32 kg, 182.88 cm) jrd 11:28 Patient unable to give a pain scale rating jrd MDM: 11:17 Lesson Instructor/Pulse Ox/q 15 min VS ordered. sd1 11:17 Accucheck ordered. sd1 11:17 IV Saline Lock ordered. sd1 11:17 Oxygen at 4L/Min NC or Home dosage ordered. sd1 11:17 Rhythm Strip to chart ordered. sd1 11:17 CBC with Diff Ordered. EDMS 11:17 Cardiac Injury Profile Ordered. EDMS 11:17 Liver Profile Ordered. EDMS 11:17 MED Profile Ordered. EDMS 11:17 Thyroid Stimulating Hormone Ordered. EDMS 11:17 Troponin Ordered. EDMS 11:18 CT Head Without Contrast Ordered. EDMS 11:18 ECG WITH READING ER PHYS+CARDIAG ordered. EDMS 11:28 UA Ordered. EDMS 11:28 Urine Culture Ordered. EDMS 11:30 Chest, 2 View (pa\E\lat) Ordered. EDMS 12:12 Financial registration complete. mm15 12:25 CBC with Diff Reviewed. sd1 12:25 Cardiac Injury Profile Reviewed. sd1 12:25 Liver Profile Reviewed. sd1 12:25 MED Profile Reviewed. sd1 12:25 Thyroid Stimulating Hormone Reviewed. sd1 12:25 Troponin Reviewed. sd1 12:26 NS 0.9% 1000 ml IV at 150 mL/hr continuous ordered. sd1 13:19 UA Reviewed. sd1 13:19 CT Head Without Contrast Reviewed. sd1 13:19 Chest, 2 View (pa\E\lat) Reviewed. sd1 13:25 [facility] Payment Agreement was scanned into [email or web address] and attached to record. mm15 14:52 Fingerstick Blood Sugar Reviewed. sd1 15:02 Ammonia ([place] Tube on Ice, Not Pea Green) Ordered. EDMS 15:02 BED REQUEST+ADM ordered. EDMS 15:04 Urine Toxicology Ordered. EDMS 17:17 PHYSICAL THERAPY EVAL & TREAT ordered. EDMS 17:18 CONSISTENT CARBOHYDRATES ordered. EDMS 17:19 TROPONIN Ordered. EDMS 17:19 TROPONIN Ordered. EDMS 17:48 PROTHROMBIN TIME PROFILE\E\INR Ordered. EDMS 17:49 Admission / Observation Status ordered. EDMS 17:52 ECHOCARD,DOPPLER/COLOR FLOW ordered. EDMS 18:05 PREALBUMIN Ordered. EDMS 18:17 BLOOD CULTURES Ordered. EDMS 18:17 BLOOD CULTURES Ordered. EDMS 18:27 DRUG EVAL TOXICOLOGY ED ONLY Ordered. EDMS 18:27 ETHYL ALCOHOL (ETHANOL) Ordered. EDMS 19:33 COMPLETE BLOOD COUNT Ordered. EDMS 19:33 BASIC METABOLIC PROFILE Ordered. EDMS 08/19 09:14 T-Sheet-- Draft Copy was scanned into [email or web address] and attached to record. [facility] Point of Care Testing: Blood Glucose: 08/18 14:51 Blood Glucose: 69 mg/dL; mb9 14:51 Dr Fatimah lopez. mb9 Ranges: Administered Medications: 13:30 Drug: NS 0.9% 1000 ml [sodium chloride 0.9 % injection solution] Route: IV; Rate: 150 mb9 mL/hr; Site: left antecubital; Signatures: Dispatcher [employer] EDAZ Nicole Galan MD MD sd1 Lorraine Bernard RN RN Carmen Thomas mm15 Esau Membreno RN RN mb9 Nicole Brisco[address] [facility] The chart was reviewed and I authenticate all verbal orders and agree with the evaluation and treatment provided.Corrections: (The following items were deleted from the chart) 11:22 Home Meds: insulin- unknown - 130 units at night; mb9 mb9 11:22 Home Meds: isosorbide mononitrate 120 mg Oral Tb24 1 tab once daily; mb9 mb9 :53 11:22 Home Meds: Januvia 100 mg oral tab 1 tab once daily; mb9 mb9 11:53 11:22 Home Meds: metformin 500 mg Oral Tb24 2 tabs 2 times per day; mb9 mb9 11:53 11:22 Home Meds: methyldopa 250 mg Oral tab 1 tab 2 times per day; mb9 mb9 :53 11:22 Home Meds: metoprolol tartrate 25 mg Oral tab 1 tab 2 times per day; mb9 mb9 11:53 11:22 Home Meds: simvastatin 10 mg Oral tab 1 tab once daily; mb9 mb9 18:05 17:48 PREALBUMIN ordered. EDMS EDMS 19:13 17:52 MRI Brain without Contrast ordered. EDMS EDMS Attachments: 13:25 [facility] Payment Agreement mm15 08/19 09:14 T-Sheet-- Draft Copy [facility] Chart Complete MTDD
--- NOTE | 2016-08-20 21:31 | EDDOCDS ---
Physician Documentation [facility] Name: Tomi Ortega Age: 86 yrs Sex: Male : 1930 Arrival Date: 08/18/2016 Time: 11:11 Bed 19 Private MD: Sania James Disposition: 08/18/16 15:16 Hospitalization ordered by Nghia Lee for Inpatient Admission. Preliminary diagnosis is Altered mental status, unspecified. - Bed requested for PCU. - Status is Inpatient Admission. mb9 - Condition is Stable. - Problem is new. - Symptoms are unchanged. Historical: - Allergies: PENICILLINS; - Home Meds: 1. Nitrostat 0.6 mg SL subl 1 tab every 5 minutes 2. isosorbide mononitrate 120 mg Oral Tb24 1 tab once daily (Last dose: 08/17/2016) 3. Januvia 100 mg oral tab 1 tab once daily (Last dose: 08/17/2016) 4. metformin 500 mg Oral Tb24 2 tabs 2 times per day (Last dose: 08/17/2016) 5. methyldopa 250 mg Oral tab 1 tab 2 times per day (Last dose: 08/17/2016) 6. metoprolol tartrate 25 mg Oral tab 1 tab 2 times per day (Last dose: 08/17/2016) 7. simvastatin 10 mg Oral tab 1 tab once daily (Last dose: 08/17/2016) 8. Levemir 100 unit/mL subcutaneous soln 130 unit daily (Last dose: 08/17/2016) - PMHx: CHF; Hypertension; Type 2 DM, poorly controlled; - PSHx: Appendectomy; - Family history: No immediate family members are acutely ill. - Social history: Smoking status: Patient states former smoker of tobacco. No barriers to communication noted, The patient speaks fluent [place]. - : The pt / caregiver states he / she is not on anticoagulants. Home medication list is obtained from the facility MAR, Note pt appears confused. family on the way to the Er. will verify med list with them. - Exposure Risk Screening:: None identified. Vital Signs: 08/18 11:28 BP 164 / 90 RA Sitting (auto/reg); Pulse 74; Resp 18; Temp 98.2(O); Pulse Ox 96% on jrd R/A; Weight 109.32 kg / 241.01 lbs (R); Height 6 ft. 0 in. (182.88 cm) (R); 12:33 Pulse 84 MON; mb9 12:33 BP 193 / 126 (auto/); mb9 12:48 BP 178 / 104 (auto/); mb9 12:48 Pulse 78 MON; Resp 18; Pulse Ox 97% ; mb9 13:03 BP 194 / 113 (auto/); mb9 13:03 Pulse 70 MON; Pulse Ox 96% ; mb9 13:18 Pulse 72 MON; Pulse Ox 96% ; mb9 13:18 BP 180 / 107 (auto/); mb9 13:33 Pulse 76 MON; mb9 13:33 BP 185 / 108 (auto/); mb9 13:48 Pulse 72 MON; Pulse Ox 100% ; mb9 13:48 BP 184 / 99 (auto/); mb9 14:03 Pulse 74 MON; Pulse Ox 98% ; mb9 14:03 BP 175 / 98 (auto/); mb9 14:18 Pulse 76 MON; Pulse Ox 97% ; mb9 14:18 BP 178 / 91 (auto/); mb9 14:33 Pulse 74 MON; Pulse Ox 97% ; mb9 14:33 BP 179 / 88 (auto/); mb9 14:48 Pulse 78 MON; Pulse Ox 97% ; mb9 14:48 BP 177 / 94 (auto/); mb9 15:03 Pulse 78 MON; Pulse Ox 99% ; mb9 15:03 BP 194 / 93 (auto/); mb9 15:18 Pulse 72 MON; Pulse Ox 98% ; mb9 15:18 BP 187 / 95 (auto/); mb9 15:33 Pulse 84 MON; Pulse Ox 98% ; mb9 15:33 BP 172 / 78 (auto/); mb9 15:47 Pulse 90 MON; Pulse Ox 97% ; mb9 15:48 BP 167 / 86 (auto/); mb9 16:03 Pulse 78 MON; Pulse Ox 96% ; mb9 16:03 BP 139 / 79 (auto/); mb9 16:18 Pulse 80 MON; Pulse Ox 97% ; mb9 16:18 BP 142 / 74 (auto/); mb9 16:32 Pulse 80 MON; Pulse Ox 97% ; mb9 16:33 BP 146 / 77 (auto/); mb9 16:48 Pulse 78 MON; Pulse Ox 97% ; mb9 16:48 BP 135 / 73 (auto/); mb9 17:03 Pulse 90 MON; Pulse Ox 98% ; mb9 17:03 BP 166 / 84 (auto/); mb9 18:37 BP 157 / 90; Pulse 78; Resp 18; Temp 98; Pulse Ox 97% on R/A; ld5 19:09 BP 146 / 70 (auto/); lf1 19:09 Pulse 78 MON; Pulse Ox 95% ; lf1 19:32 BP 164 / 93 (auto/); mb9 19:32 Pulse 78 MON; Resp 18; Pulse Ox 97% ; mb9 20:22 Pulse 76 MON; Pulse Ox 96% ; lf1 11:28 Body Mass Index 32.69 (109.32 kg, 182.88 cm) jrd 11:28 Patient unable to give a pain scale rating jrd MDM: 11:17 Market Director/Pulse Ox/q 15 min VS ordered. sd1 11:17 Accucheck ordered. sd1 11:17 IV Saline Lock ordered. sd1 11:17 Oxygen at 4L/Min NC or Home dosage ordered. sd1 11:17 Rhythm Strip to chart ordered. sd1 11:17 CBC with Diff Ordered. EDMS 11:17 Cardiac Injury Profile Ordered. EDMS 11:17 Liver Profile Ordered. EDMS 11:17 MED Profile Ordered. EDMS 11:17 Thyroid Stimulating Hormone Ordered. EDMS 11:17 Troponin Ordered. EDMS 11:18 CT Head Without Contrast Ordered. EDMS 11:18 ECG WITH READING ER PHYS+CARDIAG ordered. EDMS 11:28 UA Ordered. EDMS 11:28 Urine Culture Ordered. EDMS 11:30 Chest, 2 View (pa\E\lat) Ordered. EDMS 12:12 Financial registration complete. mm15 12:25 CBC with Diff Reviewed. sd1 12:25 Cardiac Injury Profile Reviewed. sd1 12:25 Liver Profile Reviewed. sd1 12:25 MED Profile Reviewed. sd1 12:25 Thyroid Stimulating Hormone Reviewed. sd1 12:25 Troponin Reviewed. sd1 12:26 NS 0.9% 1000 ml IV at 150 mL/hr continuous ordered. sd1 13:19 UA Reviewed. sd1 13:19 CT Head Without Contrast Reviewed. sd1 13:19 Chest, 2 View (pa\E\lat) Reviewed. sd1 13:25 [facility] Payment Agreement was scanned into [employer] and attached to record. mm15 14:52 Fingerstick Blood Sugar Reviewed. sd1 15:02 Ammonia ([place] Tube on Ice, Not [place]a [place]) Ordered. EDMS 15:02 BED REQUEST+ADM ordered. EDMS 15:04 Urine Toxicology Ordered. EDMS 17:17 PHYSICAL THERAPY EVAL & TREAT ordered. EDMS 17:18 CONSISTENT CARBOHYDRATES ordered. EDMS 17:19 TROPONIN Ordered. EDMS 17:19 TROPONIN Ordered. EDMS 17:48 PROTHROMBIN TIME PROFILE\E\INR Ordered. EDMS 17:49 Admission / Observation Status ordered. EDMS 17:52 ECHOCARD,DOPPLER/COLOR FLOW ordered. EDMS 18:05 PREALBUMIN Ordered. EDMS 18:17 BLOOD CULTURES Ordered. EDMS 18:17 BLOOD CULTURES Ordered. EDMS 18:27 DRUG EVAL TOXICOLOGY ED ONLY Ordered. EDMS 18:27 ETHYL ALCOHOL (ETHANOL) Ordered. EDMS 19:33 COMPLETE BLOOD COUNT Ordered. EDMS 19:33 BASIC METABOLIC PROFILE Ordered. EDMS 08/19 09:14 T-Sheet-- Draft Copy was scanned into [employer] and attached to record. [facility] Point of Care Testing: Blood Glucose: 08/18 14:51 Blood Glucose: 69 mg/dL; mb9 14:51 Dr Fatimah lopez. mb9 Ranges: Administered Medications: 13:30 Drug: NS 0.9% 1000 ml [sodium chloride 0.9 % injection solution] Route: IV; Rate: 150 mb9 mL/hr; Site: left antecubital; Signatures: Dispatcher [employer] EDIA Nicole Galan MD MD sd1 Lorraine Bernard RN RN Carmen Thomas mm15 Esau Membreno RN RN mb9 Nicole Briscoe [facility] The chart was reviewed and I authenticate all verbal orders and agree with the evaluation and treatment provided.Corrections: (The following items were deleted from the chart) 11:22 Home Meds: insulin- unknown - 130 units at night; mb9 mb9 11:22 Home Meds: isosorbide mononitrate 120 mg Oral Tb24 1 tab once daily; mb9 mb9 :53 11:22 Home Meds: Januvia 100 mg oral tab 1 tab once daily; mb9 mb9 11:53 11:22 Home Meds: metformin 500 mg Oral Tb24 2 tabs 2 times per day; mb9 mb9 11:53 11:22 Home Meds: methyldopa 250 mg Oral tab 1 tab 2 times per day; mb9 mb9 :53 11:22 Home Meds: metoprolol tartrate 25 mg Oral tab 1 tab 2 times per day; mb9 mb9 11:53 11:22 Home Meds: simvastatin 10 mg Oral tab 1 tab once daily; mb9 mb9 18:05 17:48 PREALBUMIN ordered. EDMS EDMS 19:13 17:52 MRI Brain without Contrast ordered. EDMS EDMS Attachments: 13:25 [facility] Payment Agreement mm15 08/19 09:14 T-Sheet-- Draft Copy [facility] Chart Complete MTDD
--- NOTE | 2016-08-20 21:31 | EDDOCDS ---
Nurse's Notes [facility] Name: Tomi Solares Age: 86 yrs Sex: Male : 1930 Arrival Date: 08/18/2016 Time: 11:11 Bed 19 Private MD: Sania James Diagnosis: Altered mental status, unspecified Presentation: 08/18 11:19 Presenting complaint: EMS states: "When we got to the house the pt was in bed. Family mb9 is questing if he has dementia. They said he was a diabetic and is usually high. We checked a sugar and got 50. We gave him 1 amp of D50 and the repeat sugar was 126. I just checked another sugar at 11 and is was 131.". Adult Sepsis Screening: Suicide/Homicide risk assessment- the patient denies having any suicidal and/or homicidal ideations and does not present with any other emotional, behavioral or mental health complaints. 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 Transition of care: patient was not received from another setting of care. 11:19 Acuity: IRENE Level 3 mb9 11:19 Method Of Arrival: Ambulance mb9 19:56 Adult Sepsis Screening: Patient's respiratory rate is less than 22. Systolic blood mb9 pressure is greater than 100. Patient has a qSOFA score of 0- Negative Sepsis Screen. Triage Assessment: 11:25 General: Appears in no apparent distress, Behavior is cooperative. Neurological: Level mb9 of Consciousness is. Historical: - Allergies: PENICILLINS; - Home Meds: 1. Nitrostat 0.6 mg SL subl 1 tab every 5 minutes 2. isosorbide mononitrate 120 mg Oral Tb24 1 tab once daily (Last dose: 08/17/2016) 3. Januvia 100 mg oral tab 1 tab once daily (Last dose: 08/17/2016) 4. metformin 500 mg Oral Tb24 2 tabs 2 times per day (Last dose: 08/17/2016) 5. methyldopa 250 mg Oral tab 1 tab 2 times per day (Last dose: 08/17/2016) 6. metoprolol tartrate 25 mg Oral tab 1 tab 2 times per day (Last dose: 08/17/2016) 7. simvastatin 10 mg Oral tab 1 tab once daily (Last dose: 08/17/2016) 8. Levemir 100 unit/mL subcutaneous soln 130 unit daily (Last dose: 08/17/2016) - PMHx: CHF; Hypertension; Type 2 DM, poorly controlled; - PSHx: Appendectomy; - Family history: No immediate family members are acutely ill. - Social history: Smoking status: Patient states former smoker of tobacco. No barriers to communication noted, The patient speaks fluent Faroese. - : The pt / caregiver states he / she is not on anticoagulants. Home medication list is obtained from the facility MAR, Note pt appears confused. family on the way to the Er. will verify med list with them. - Exposure Risk Screening:: None identified. Screenin:54 Screening information is obtained from family members. Fall risk: At risk due to age. mb9 Assistance ADL's: Requires assistance with meal preparation, this assistance is provided by family members, housework, assistance is provided by family members, medication administration, assistance is provided by family members. Abuse/DV Screen: The patient / caregiver reports he/she is: not in a situation that causes fear, pain or injury. Nutritional screening: No deficits noted. home support is adequate. 19:56 Advance Directives: There is no active DNR order. mb9 Assessment: 11:53 General: family at the bedside reports pt has had a slow mental decline over the last mb9 month. family also reports pt has been reluctant to eat because he believes he has an intestinal blockage. family reports has been worked up for this and it was negative. family reports that even though he is not eating he still takes his insulin as ordered. . 13:00 Reassessment: Patient appears in no apparent distress at this time. Patient states mb9 symptoms have improved. General: Appears in no apparent distress, comfortable, Behavior is fussy. Cardiovascular: Rhythm is regular. Respiratory: Airway is patent Respiratory effort is even, unlabored. 13:58 Reassessment: Patient appears in no apparent distress at this time. Adult Sepsis mb9 Screening: The patient does not have new or worsening altered mentation. Patient's respiratory rate is less than 22. Systolic blood pressure is greater than 100. Patient has a qSOFA score of 0- Negative Sepsis Screen. General: Appears in no apparent distress, comfortable, Behavior is appropriate for age, cooperative. Respiratory: Airway is patent Respiratory effort is even, unlabored. 14:47 Reassessment: Patient appears in no apparent distress at this time. Patient states mb9 symptoms have improved. General: Appears in no apparent distress, comfortable, Behavior is appropriate for age, cooperative. Respiratory: Airway is patent Respiratory effort is even, unlabored. 15:49 Reassessment: Patient appears in no apparent distress at this time. Patient states mb9 symptoms have improved. General: Appears in no apparent distress, comfortable, Behavior is appropriate for age, cooperative. Respiratory: Airway is patent Respiratory effort is. 17:09 Reassessment: Patient appears in no apparent distress at this time. Patient states mb9 symptoms have improved. pt able to stand with max assist at the bedside. . Respiratory: Airway is patent Respiratory effort is even, unlabored. 19:54 Reassessment: Patient appears in no apparent distress at this time. Patient states mb9 symptoms have improved. Adult Sepsis Screening: The patient does not have new or worsening altered mentation. Patient's respiratory rate is less than 22. Systolic blood pressure is greater than 100. Patient has a qSOFA score of 0- Negative Sepsis Screen. General: Appears in no apparent distress, comfortable, Behavior is appropriate for age, cooperative. Respiratory: Airway is patent Respiratory effort is even, unlabored. Vital Signs: 11:28 BP 164 / 90 RA Sitting (auto/reg); Pulse 74; Resp 18; Temp 98.2(O); Pulse Ox 96% on jrd R/A; Weight 109.32 kg (R); Height 6 ft. 0 in. (182.88 cm) (R); 12:33 Pulse 84 MON; mb9 12:33 BP 193 / 126 (auto/); mb9 12:48 BP 178 / 104 (auto/); mb9 12:48 Pulse 78 MON; Resp 18; Pulse Ox 97% ; mb9 13:03 BP 194 / 113 (auto/); mb9 13:03 Pulse 70 MON; Pulse Ox 96% ; mb9 13:18 Pulse 72 MON; Pulse Ox 96% ; mb9 13:18 BP 180 / 107 (auto/); mb9 13:33 Pulse 76 MON; mb9 13:33 BP 185 / 108 (auto/); mb9 13:48 Pulse 72 MON; Pulse Ox 100% ; mb9 13:48 BP 184 / 99 (auto/); mb9 14:03 Pulse 74 MON; Pulse Ox 98% ; mb9 14:03 BP 175 / 98 (auto/); mb9 14:18 Pulse 76 MON; Pulse Ox 97% ; mb9 14:18 BP 178 / 91 (auto/); mb9 14:33 Pulse 74 MON; Pulse Ox 97% ; mb9 14:33 BP 179 / 88 (auto/); mb9 14:48 Pulse 78 MON; Pulse Ox 97% ; mb9 14:48 BP 177 / 94 (auto/); mb9 15:03 Pulse 78 MON; Pulse Ox 99% ; mb9 15:03 BP 194 / 93 (auto/); mb9 15:18 Pulse 72 MON; Pulse Ox 98% ; mb9 15:18 BP 187 / 95 (auto/); mb9 15:33 Pulse 84 MON; Pulse Ox 98% ; mb9 15:33 BP 172 / 78 (auto/); mb9 15:47 Pulse 90 MON; Pulse Ox 97% ; mb9 15:48 BP 167 / 86 (auto/); mb9 16:03 Pulse 78 MON; Pulse Ox 96% ; mb9 16:03 BP 139 / 79 (auto/); mb9 16:18 Pulse 80 MON; Pulse Ox 97% ; mb9 16:18 BP 142 / 74 (auto/); mb9 16:32 Pulse 80 MON; Pulse Ox 97% ; mb9 16:33 BP 146 / 77 (auto/); mb9 16:48 Pulse 78 MON; Pulse Ox 97% ; mb9 16:48 BP 135 / 73 (auto/); mb9 17:03 Pulse 90 MON; Pulse Ox 98% ; mb9 17:03 BP 166 / 84 (auto/); mb9 18:37 BP 157 / 90; Pulse 78; Resp 18; Temp 98; Pulse Ox 97% on R/A; ld5 19:09 BP 146 / 70 (auto/); lf1 19:09 Pulse 78 MON; Pulse Ox 95% ; lf1 19:32 BP 164 / 93 (auto/); mb9 19:32 Pulse 78 MON; Resp 18; Pulse Ox 97% ; mb9 20:22 Pulse 76 MON; Pulse Ox 96% ; lf1 11:28 Body Mass Index 32.69 (109.32 kg, 182.88 cm) jrd 11:28 Patient unable to give a pain scale rating jrd ED Course: 11:13 Patient visited by Araiza, Lauren, Plaster Molder. lbd 11:13 Sania James PA-C is Private Physician. lbd 11:13 Patient moved to Waiting lbd 11:13 Patient moved to 19 lbd 11:20 Nicole Galan MD is Attending Physician. sd1 11:21 Triage Initiated mb9 11:22 Patient visited by Nicole Galan MD. sd1 11:29 Patient visited by Nahun Dukes PCA. jrd 11:32 EKG done. (by ED staff). Reviewed by Nicole Galan MD. nb2 11:38 Patient visited by Tejal Dior. nb2 11:55 Maintain field IV. Dressing intact. Good blood return noted. Site clean & dry. Gauge & mb9 site: 20 gauge left ac.. 12:36 Urine Culture Sent. jrd 12:36 UA Sent. jrd 13:02 CT Head Without Contrast Returned. EDMS 13:02 Chest, 2 View (pa\\E\\lat) Returned. EDMS 13:25 [facility] Payment Agreement was scanned into [employer] and attached to record. mm15 13:50 Patient visited by Tejal Dior. nb2 14:49 Patient visited by Esau Membreno RN. mb9 14:53 The patient / caregiver is instructed regarding the plan of care and ED course. pt mb9 given a boxed lunch. 15:15 Urine Toxicology Sent. mb9 15:16 Nghia Lee is Hospitalizing Provider. sd1 19:42 EKG-ADULT Returned. EDMS 19:44 Discontinued IV lock intact, bleeding controlled, pressure dressing applied, No mb9 redness/swelling at site. No procedures done that require assistance. 19:44 Inserted saline lock: 20 gauge in right forearm and blood collected. The patient mb9 tolerated the procedure well. 08/19 09:14 T-Sheet-- Draft Copy was scanned into [employer] and attached to record. [facility] Administered Medications: 08/18 13:30 Drug: NS 0.9% 1000 ml [sodium chloride 0.9 % injection solution] Route: IV; Rate: 150 mb9 mL/hr; Site: left antecubital; Point of Care Testing: Blood Glucose: 14:51 Blood Glucose: 69 mg/dL; mb9 14:51 Dr Sheridan aware. mb9 Ranges: Intake: 14:51 PO: 240.00ml (Juice); Total: 240.00ml. mb9 Output: 12:37 Urine: 440.00ml; Total: 440.00ml. jrd Order Results: Lab Order: CBC with Diff; SPEC'M 08/18/16 11:34 Test: WHITE BLOOD COUNT; Value: 8.3; Range: 4.0-10.0; Units: K/mm3; Status: F Test: RED BLOOD COUNT; Value: 3.85; Range: 4.30-6.10; Abnormal: Below low normal; Units: M/mm3; Status: F Test: HEMOGLOBIN; Value: 11.4; Range: 14.0-18.0; Abnormal: Below low normal; Units: g/dl; Status: F Test: HEMATOCRIT; Value: 36.7; Range: 42.0-52.0; Abnormal: Below low normal; Units: %; Status: F Test: MEAN CORPUSCULAR VOLUME; Value: 95.3; Range: 80.0-96.0; Units: fl; Status: F Test: MEAN CORPUSCULAR HEMOGLOBIN; Value: 29.7; Range: 27.0-33.0; Units: pg; Status: F Test: MEAN CORPUSCULAR HGB CONC; Value: 31.2; Range: 32.0-36.5; Abnormal: Below low normal; Units: g/dl; Status: F Test: RED CELL DISTRIBUTION WIDTH; Value: 12.3; Range: 11.5-14.5; Units: %; Status: F Test: PLATELET COUNT, AUTOMATED; Value: 536; Range: 150-450; Abnormal: Above high normal; Units: k/mm3; Status: F Test: NEUTROPHILS %; Value: 85.8; Range: 36.0-66.0; Abnormal: Above high normal; Units: %; Status: F Test: LYMPH %; Value: 8.1; Range: 24.0-44.0; Abnormal: Below low normal; Units: %; Status: F Test: MONO %; Value: 4.6; Range: 0.0-5.0; Units: %; Status: F Test: EOS %; Value: 0.2; Range: 0.0-3.0; Units: %; Status: F Test: BASO %; Value: 0.2; Range: 0.0-1.0; Units: %; Status: F Test: LARGE UNSTAINED CELL %; Value: 1.1; Range: 0.0-4.0; Units: %; Status: F Test: NEUTROPHILS #; Value: 7.1; Range: 1.8-7.7; Units: K/mm3; Status: F Test: LYMPH #; Value: 0.7; Range: 1.5-4.5; Abnormal: Below low normal; Units: K/mm3; Status: F Test: MONO #; Value: 0.4; Range: 0.0-0.8; Units: K/mm3; Status: F Test: EOS #; Value: 0.0; Range: 0.0-0.50; Units: K/mm3; Status: F Test: BASO #; Value: 0.0; Range: 0.0-0.2; Units: K/mm3; Status: F Test: LARGE UNSTAINED CELL #; Value: 0.1; Range: 0.0-0.4; Units: K/mm3; Status: F Lab Order: Cardiac Injury Profile; SPEC'M 08/18/16 11:34 Test: CPK CREATINE PHOSPHOKINASE; Value: 25; Range: 39-308; Abnormal: Below low normal; Units: U/L; Status: F Test: CK-MB VALUE MASS; Value: 1.0; Range: 0.0-3.6; Units: NG/ML; Status: F Test: MB/CK RELATIVE INDEX; Value: 4.00; Range: < OR =4; Status: F Test Note: ; DIAGNOSIS CRITERIA MMB ng/ml Relative Index (RI) NON-AMI < or = 5 N/A [place] > 5 < or = 4 AMI > 5 > 4 Lab Order: Liver Profile; SPEC'M 08/18/16 11:34 Test: AST/SGOT; Value: 19; Range: 15-37; Units: U/L; Status: F Test: ALT/SGPT; Value: 25; Range: 12-78; Units: U/L; Status: F Test: ALKALINE PHOSPHATASE; Value: 117; Range: 45-117; Units: U/L; Status: F Test: BILIRUBIN,TOTAL; Value: 0.5; Range: 0.2-1.0; Units: MG/DL; Status: F Test: BILIRUBIN,DIRECT; Value: 0.2; Range: 0.0-0.2; Units: MG/DL; Status: F Test: TOTAL PROTEIN; Value: 7.1; Range: 6.4-8.2; Units: GM/DL; Status: F Test: ALBUMIN; Value: 2.5; Range: 3.2-5.2; Abnormal: Below low normal; Units: GM/DL; Status: F Test: ALBUMIN/GLOBULIN RATIO; Value: 0.54; Range: 1.00-1.93; Abnormal: Below low normal; Status: F Lab Order: MED Profile; [facility] 08/18/16 11:34 Test: GLUCOSE, FASTING; Value: 105; Range: 83-110; Units: MG/DL; Status: F Test: BLOOD UREA NITROGEN; Value: 22; Range: 7-18; Abnormal: Above high normal; Units: MG/DL; Status: F Test: CREATININE FOR GFR; Value: 1.03; Range: 0.70-1.30; Units: MG/DL; Status: F Test: GLOMERULAR FILTRATION RATE; Value: > 60.0; Range: >35; Status: F Test: SODIUM LEVEL; Value: 140; Range: 136-145; Units: MEQ/L; Status: F Test: POTASSIUM SERUM; Value: 4.0; Range: 3.5-5.1; Units: MEQ/L; Status: F Test: CHLORIDE LEVEL; Value: 99; Range: 98-107; Units: MEQ/L; Status: F Test: CARBON DIOXIDE LEVEL; Value: 31; Range: 21-32; Units: MEQ/L; Status: F Test: ANION GAP; Value: 10; Range: 8-16; Units: MEQ/L; Status: F Test: CALCIUM LEVEL; Value: 8.3; Range: 8.8-10.2; Abnormal: Below low normal; Units: MG/DL; Status: F Test Note: ; Units are mL/min/1.73 m2 Chronic Kidney Disease Staging per NKF: Stage I & II GFR >=60 Normal to Mildly Decreased Stage III GFR 30-59 Moderately Decreased Stage IV GFR 15-29 Severely Decreased Stage V GFR <15 Very Little GFR Left ESRD GFR <15 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 0.10-1.50 ng/ml Increased Risk for Adverse Clinical Events. Evaluation of additional criterion and/or repeat testing in 2-6 hours is suggested to rule out myocardial damage. >= 1.50 ng/ml Indicative of Myocardial Injury. Lab Order: UA; SPEC'M 08/18/16 12:36 Test: APPEARANCE, URINE; Value: CLEAR; Range: CLEAR; Status: F Test: COLOR, URINE; Value: YELLOW; Range: YELLOW; Status: F Test: PH,URINE; Value: 5.0; Range: 5.0-9.0; Units: UNITS; Status: F Test: SPECIFIC GRAVITY URINE AUTO; Value: 1.016; Range: 1.002-1.035; Status: F Test: PROTEIN, URINE AUTO; Value: 1+; Range: NEGATIVE; Abnormal: Above high normal; Units: mg/dL; Status: F Test: GLUCOSE, URINE (UA) AUTO; Value: NEGATIVE; Range: NEGATIVE; Units: mg/dL; Status: F Test: KETONE, URINE AUTO; Value: TRACE; Range: NEGATIVE; Abnormal: Above high normal; Units: mg/dL; Status: F Test: UROBILINOGEN, URINE AUTO; Value: 2.0; Range: 0.0-2.0; Abnormal: Above high normal; Units: mg/dL; Status: F Test: BILIRUBIN, URINE AUTO; Value: NEGATIVE; Range: NEGATIVE; Status: F Test: NITRITE, URINE AUTO; Value: NEGATIVE; Range: NEGATIVE; Status: F Test: LEUKOCYTE ESTERASE, URINE AUTO; Value: TRACE; Range: NEGATIVE; Abnormal: Above high normal; Status: F Test: BLOOD, URINE BLOOD; Value: NEGATIVE; Range: NEGATIVE; Status: F Test: WBC, URINE AUTO; Value: 1; Range: 0-3; Units: /HPF; Status: F Test: RBC, URINE AUTO; Value: 0; Range: 0-3; Units: /HPF; Status: F Test: BACTERIA, URINE AUTO; Value: NEGATIVE; Range: NEGATIVE; Status: F Test: SQUAMOUS EPITHELIAL CELL UR AU; Value: 0; Range: 0-6; Units: /HPF; Status: F Test: MUCUS, URINE; Value: SMALL; Range: NEGATIVE; Status: F Test: HYALINE CAST, URINE AUTO; Value: 0; Range: 0-1; Units: /LPF; Status: F Lab Order: Fingerstick Blood Sugar; SPEC'M 08/18/16 14:36 Test: BEDSIDE GLUCOSE; Value: 69; Range: 83-110; Abnormal: Below low normal; Units: MG/DL; Status: F Lab Order: Ammonia ([place] Tube on Ice, Not [place]); SPEC' 08/18/16 16:08 Test: AMMONIA; Value: 20; Range: <32; Units: uMOL/L; Status: F Lab Order: Urine Toxicology; SPEC'M 08/18/16 15:57 Test: AMPHETAMINES LEVEL URINE; Value: NEGATIVE; Range: NEGATIVE; Status: F Test: BARBITURATES URINE; Value: NEGATIVE; Range: NEGATIVE; Status: F Test: BENZODIAZEPINES URINE; Value: NEGATIVE; Range: NEGATIVE; Status: F Test: CANNABINOIDS URINE; Value: NEGATIVE; Range: NEGATIVE; Status: F Test: COCAINE METABOLITE URINE; Value: NEGATIVE; Range: NEGATIVE; Status: F Test: METHADONE URINE; Value: NEGATIVE; Range: NEGATIVE; Status: F Test: OPIATES URINE; Value: NEGATIVE; Range: NEGATIVE; Status: F Test: TRICYCLIC ANTIDEPRESS URINE; Value: NEGATIVE; Range: NEGATIVE; Status: F Test Note: ; ALL PRESUMPTIVE POSITIVE FINDINGS ARE UNCONFIRMED NORMAL VALUES THRESHOLD IN NG/ML AMPHETAMINES 1000 METHAMPHETAMINES 1000 BARBITURATES 300 BENZODIAZEPINES 300 CANNABINOIDS (THC) 50 COCAINE METABOLITE 300 METHADONE 300 OPIATES 300 PHENCYCLIDINE 25 TRICYCLIC ANTIDEPRESSANTS 1000 RESULTS ARE FOR MEDICAL PURPOSES ONLY. ALL URINE SPECIMENS WILL BE SAVED FOR 3 DAYS. IF CONFIRMATION OF A PRESUMPTIVE POSTIVE SCREEN RESULT IS DESIRED, CALL CHEMISTRY ([phone]) AND REQUEST URINE TO BE SENT TO REFERENCE LAB. FOR A LIST OF CLOSELY RELATED COMPOUNDS PLEASE CALL THE LAB. Lab Order: TROPONIN; SPEC'M 08/18/16 17:29 Test: TROPONIN I; Value: < 0.02; Range: < 0.10; Units: NG/ML; Status: F Test Note: ; Troponin I Reference Interval for [employer] [place] LOCI: 99th Percentile= 0.00-0.045 ng/ml Risk Stratification: <= 0.10 ng/ml Decreased Risk for Adverse Clinical Events. 0.10-1.50 ng/ml Increased Risk for Adverse Clinical Events. Evaluation of additional criterion and/or repeat testing in 2-6 hours is suggested to rule out myocardial damage. >= 1.50 ng/ml Indicative of Myocardial Injury. Lab Order: PROTHROMBIN TIME PROFILE\\E\\INR; SPEC'M 08/18/16 11:34 Test: PROTHROMBIN TIME; Value: 14.8; Range: 12.3-14.5; Abnormal: Above high normal; Units: SECONDS; Status: F Test: INR; Value: 1.15; Status: F Test Note: ; THERAPUTIC HUMAN INR VALUES INDICATIONS NORMAL RANGES PROPHYLAXIS/TREATMENT OF: VENOUS THROMBOSIS 2.0-3.0 PULMONARY EMBOLISM 2.0-3.0 PREVENTION OF SYSTEMIC EMBOLISM FROM: TISSUE HEART VALVES 2.0-3.0 ACUTE MYOCARDIAL INFARCTION 2.0-3.0 VALVULAR HEART DISEASE 2.0-3.0 ATRIAL FIBRILLATION 2.0-3.0 MECHANICAL VALVES(HIGH RISK) 2.5-3.5 RECURRENT MYOCARDIAL INFARCTION 2.5-3.5 Lab Order: PREALBUMIN; SPEC'M 08/18/16 17:29 Test: PREALBUMIN; Value: 10.9; Range: 20.0-40.0; Abnormal: Below low normal; Units: MG/DL; Status: F Lab Order: ETHYL ALCOHOL (ETHANOL); SPEC'M 08/18/16 18:36 Test: ETHYL ALCOHOL (ETHANOL); Value: < 0.003; Range: 0.000-0.010; Units: %; Status: F Radiology Order: CT Head Without Contrast Test: CT Head Without Contrast REASON FOR EXAMINATION: altered mental status; CT HEAD WITHOUT CONTRAST:; ; HISTORY: Altered mental status.; ; COMPARISON: MR dated 05/12/2003.; ; Areas of decreased attentuation are present in the periventricular and; subcortical white matter. This represents small vessel ischemic disease. There; is no intraparenchymal hemorrhage, mass, or midline shift. The ventricular; system and cortical sulci as well as subarachnoid space in the posterior fossa; are dilated consistent with moderate volume loss. There is no extracerebral; collection. The visualized sinuses are clear.; ; IMPRESSION:; ; 1. Small vessel ischemic disease.; ; 2. Moderate volume loss.; ; ; Signed by; Theodore Turk MD 08/18/2016 12:34 P; Radiology Order: EKG-ADULT Test: EKG-ADULT REASON FOR EXAMINATION: altered mental status; Stationary ECG Study; [facility] - ED; ; Test Date: 2016-08-18; Pat Name: TOMI SOLARES Department:; Room: -; Gender: M Cook Taco: gloria; : 1930 Requested By: Nicole Galan; Order Number: [id number] Reading MD: Nicole Galan; Measurements; Intervals [place]; Rate: 71 P: 18; TX: 159 QRS: 11; QRSD: 106 T: 42; QT: 406; QTc: 444; Interpretive Statements; SINUS RHYTHM; NSTTW ABNORMALITY; LOW VOLTAGE LIMB; Electronically Signed On 08-18-2016 19:30:54 EST by Nicole Galan; Radiology Order: Chest, 2 View (pa\\E\\lat) Test: Chest, 2 View (pa\\E\\lat) REASON FOR EXAMINATION: Chest Pain; CHEST TWO VIEWS:; ; HISTORY: Chest pain.; ; COMPARISON: 06/29/2016; ; An increase in interstitial markings is present in the lower lobes consistent; with chronic interstitial fibrosis. A small left pleural effusion is present.; The cardiac silhouette is enlarged. The pulmonary vasculature is prominence.; ; IMPRESSION:; ; 1. Bibasilar chronic interstitial fibrosis.; ; 2. Small left pleural effusion; ; 3. Cardiomegaly.; ; ; Signed by; Theodore Turk MD 08/18/2016 12:34 P; Outcome: 15:16 Decision to Hospitalize by Provider. sd1 19:54 Discharge Assessment: Patient awake, alert and oriented x 3. No cognitive and/or mb9 functional deficits noted. Patient verbalized understanding of disposition instructions. patient administered narcotics - no. The following High Risk Discharge criteria are identified: None. Admitted to PCU. Condition: good Condition: stable Condition: improved. CT Study completed. Property :Personal belongings accompany Pt. 20:29 Patient left the ED. mb9 Signatures: Dispatcher [employer] EDMS Nicole Galan MD MD sd1 Lauren Araiza, Plaster Molder Unit lbd Nubia Alejandra,RN RN lf1 Angela Mckinnon,RN RN ld5 Carmen Wright mm15 Nahun Dukes, HANY ENGINEERING SPECIALIST Esau Wiggins RN RN mb9 Nicole Briscoe Nicole nb2 Corrections: (The following items were deleted from the chart) 11:22 Home Meds: insulin- unknown - 130 units at night; [facility] 11:22 Home Meds: isosorbide mononitrate 120 mg Oral Tb24 1 tab once daily; 9 11:22 Home Meds: Januvia 100 mg oral tab 1 tab once daily; 9 11:22 Home Meds: metformin 500 mg Oral Tb24 2 tabs 2 times per day; 9 9 11:22 Home Meds: methyldopa 250 mg Oral tab 1 tab 2 times per day; 9 11:22 Home Meds: metoprolol tartrate 25 mg Oral tab 1 tab 2 times per day; 9 11:22 Home Meds: simvastatin 10 mg Oral tab 1 tab once daily; 9 mb9 Chart Complete MTDD
--- NOTE | 2016-08-21 08:32 | ECHO ---
DATE OF PROCEDURE: 08/19/2016 DATE OF : 1930 AGE: 86 REFERRING PROVIDER: Dr. Austin Mckenzie. PATIENT LOCATION: Room 3212. REASON FOR ECHOCARDIOGRAM: Edema, altered mental status. 2D MEASUREMENTS: IVS: 1.3 cm LV: 4.1 cm LVPW: 1.2 cm LA: 4.2 cm Aorta: 3.6 cm IVC: 2.2 cm RV: 3.6 cm DOPPLER MEASUREMENTS: Peak velocity across the aortic valve: 1.2 m/s Peak velocity across the LVOT: 1.1 m/s Mitral E: 0.85 Mitral A: 0.58 Ratio 1.48 2D COMMENTS: 1. Normal left ventricular size with probably mildly increased left ventricular wall thickness. Left ventricular systolic function with a left ventricular ejection fraction estimated at 60%. 2. Mildly enlarged left atrium. Normal right atrium and right ventricle. 3. The atrial septum appeared to be normal without evidence of defect or shunt. 4. Normal aortic root. 5. Small to moderate pericardial effusion noted mainly anteriorly, no evidence of cardiac tamponade. 6. Mildly calcified aortic valve with normal leaflet motion. Normal mitral valve and tricuspid valve. The pulmonic valve was not well visualized. The proximal pulmonary artery branches were not visualized. DOPPLER: Only mild tricuspid regurgitation detected. The calculated pulmonary artery systolic pressure varies between 30 to 40 mmHg. Assessment of the left ventricular diastolic function appeared to be normal. IMPRESSION: 1. Normal global left ventricular systolic function. Left ventricular diastolic function also appeared to be normal. 2. Aortic valve sclerosis without stenosis or aortic regurgitation. 3. Mild tricuspid regurgitation with mild pulmonary hypertension. 4. Small to moderate pericardial effusion noted but mainly anteriorly, no evidence of cardiac tamponade. Not mentioned above, pleural effusion also was noted. 5. There are features that may be related to elevated central venous pressure. The inferior vena cava/IVC was mildly enlarged.
--- NOTE | 2016-08-21 09:27 | DSES ---
DATE OF ADMISSION: 08/18/2016 DATE OF DISCHARGE: 08/20/2016 ADMISSION DIAGNOSES: 1. Encephalopathy, etiology unclear. 2. Type 2 diabetes with recurrent hypoglycemia. 3. Anasarca. 4. Hypertension. 5. Hyperlipidemia. 6. Noncompliance with medical regimen. 7. Obesity. DISCHARGE DIAGNOSES: 1. Dementia. 2. Type 2 diabetes. 3. Hypoalbuminemia. PRIMARY CARE PROVIDER: AKIKO Hall, at [facility]. IMAGING: Chest x-ray and head CT. ADMISSION HISTORY: Mr. Ortega was brought to the emergency room (ER) with significant hypoglycemia and confusion. The hypoglycemia seemed to relate to his decreased oral intake, but still taking all of his insulin. The decreased oral intake seems to relate to his persistent belief that he is constipated despite normal bowel movements (BMs) and reassurance by his family. HOSPITAL COURSE: Mr. Ortega was admitted with hypoglycemia and confusion. His hypoglycemia resolved as he ate well here and his delusion that he was constipated seemed to resolve in the hospital. He did have normal bowel movements while here. The concern for acute encephalopathy was determined to be his baseline dementia by his primary care team. The swelling relates to hypoalbuminemia secondary to poor nutrition before his admission. After we were able to assess that he was stable while here in the hospital, he was discharged home to the care of his family who realized that they must be much more involved in his care now secondary to his advancing dementia. DISCHARGE ORDERS: Discharge home in stable condition. Diet is consistent carbohydrate diet. Activity is as tolerated. Followup is to be on 08/29/2016 at 11 o'clock with Sania James. He was given a script for a five inch wheeled rolling walker for the diagnosis of unsteady gait. DISCHARGE MEDICATIONS: - Levemir FlexTouch 36 units subcutaneously at bedtime (this is a substantial decrease from his previous dose of 130 units) - diphenhydramine 25 mg by mouth at bedtime as needed insomnia - isosorbide mononitrate extended release 120 mg by mouth daily - metformin hydrochloride 1 gram by mouth twice a day - methyldopa 250 mg by mouth twice a day - metoprolol tartrate 25 mg by mouth twice a day - Nitrostat sublingual 0.4 mg every 5 minutes times three doses for chest pain (call physician after three doses) - simvastatin 10 mg by mouth at bedtime - Januvia 100 mg by mouth daily
== END 2016-08-20 15:42 | disposition home or self-care (01) | DRG 637 ==
LOC: M ED 11:11 → M ED INP 17:46 → M PCU 20:32
PROVIDERS: ADMIT Internal Medicine; ATTEND Family Medicine
DX: E11.649 Type 2 diabetes mellitus with hypoglycemia without coma (principal); G93.40 Encephalopathy, unspecified; R41.82 Altered mental status, unspecified; R60.1 Generalized edema; I10 Essential (primary) hypertension; E78.5 Hyperlipidemia, unspecified; E66.9 Obesity, unspecified; F03.90 Unspecified dementia, unspecified severity, without behavioral disturbance, psychotic disturbance, mood disturbance, and anxiety; Z91.19 Patient's noncompliance with other medical treatment and regimen; E88.09 Other disorders of plasma-protein metabolism, not elsewhere classified; Z79.4 Long term (current) use of insulin; Z79.899 Other long term (current) drug therapy; I25.2 Old myocardial infarction; Z95.9 Presence of cardiac and vascular implant and graft, unspecified; Z88.0 Allergy status to penicillin; Z88.3 Allergy status to other anti-infective agents; Z82.49 Family history of ischemic heart disease and other diseases of the circulatory system; Z87.891 Personal history of nicotine dependence

== ENCOUNTER → 2016-08-29 | Outpatient (REF) | payer MEDICARE, OTHER ==
[~2016-08-29] MED LIST: BENA25TA9 PO; INSUDET SC; ISOS120T4 PO; JANU100T PO; LEVE1INJ5 SC; METF500T PO; METHY25TA PO; METO25TAB PO; NITR4TASL SL; SIMV10TA2 PO
[2016-08-29 18:49] LABS: ANION GAP 8 MEQ/L (8-16); BLOOD UREA NITROGEN 23 MG/DL (7-18); CALCIUM LEVEL 8.8 MG/DL (8.8-10.2); CARBON DIOXIDE LEVEL 29 MEQ/L (21-32); CHLORIDE LEVEL 100 MEQ/L (98-107); CREATININE FOR GFR 1.03 MG/DL (0.70-1.30); FERRITIN 368 NG/ML (26-388); GLOMERULAR FILTRATION RATE > 60.0 (>35); GLUCOSE, FASTING 135 MG/DL (83-110); PERCENT SATURATION 15.4 % (19.7-37.4); SODIUM LEVEL 137 MEQ/L (136-145); TOTAL IRON BINDING CAPACITY 253 UG/DL (250-450)
[2016-08-29 18:51] LABS: POTASSIUM SERUM 5.4 MEQ/L (3.5-5.1)
[2016-08-29 18:55] LABS: BASO % 0.3 % (0.0-1.0); EOS # 0.2 K/mm3 (0.0-0.50); EOS % 3.3 % (0.0-3.0); LARGE UNSTAINED CELL # 0.1 K/mm3 (0.0-0.4); LYMPH # 1.3 K/mm3 (1.5-4.5); MEAN CORPUSCULAR HEMOGLOBIN 28.6 pg (27.0-33.0); MEAN CORPUSCULAR HGB CONC 30.5 g/dl (32.0-36.5); MEAN CORPUSCULAR VOLUME 93.8 fl (80.0-96.0); MONO # 0.5 K/mm3 (0.0-0.8); MONO % 7.7 % (0.0-5.0); NEUTROPHILS # 4.6 K/mm3 (1.8-7.7); NEUTROPHILS % 67.7 % (36.0-66.0); PLATELET COUNT, AUTOMATED 567 k/mm3 (150-450); RED CELL DISTRIBUTION WIDTH 12.5 % (11.5-14.5); WHITE BLOOD COUNT 6.8 K/mm3 (4.0-10.0)
[2016-08-29 19:29] LABS: FOLATE 10.6 NG/ML; VITAMIN B12 LEVEL 240 PG/ML
== END ==
LOC: M SFHCADAM 11:44
PROVIDERS: ATTEND Physician Assistant Medical
DX: D64.9 Anemia, unspecified (principal); E11.9 Type 2 diabetes mellitus without complications
CPT/HCPCS: 80048; 82607; 82728; 82746; 83550; 85025; G0463

== ENCOUNTER → 2016-09-24 | Outpatient (REF) | payer MEDICARE, OTHER | LOC: M LAB REF 10:05 | PROVIDERS: ATTEND Physician Assistant | DX: L03.319 Cellulitis of trunk, unspecified (principal) ==

== ENCOUNTER → 2017-01-04 | Outpatient (REF) | payer MEDICARE, OTHER ==
[~2017-01-04] MED LIST changes: +BENA25TA10 PO; -BENA25TA9 PO; -METF500T PO; +METF500T13 PO; +METO25TA4 PO; -METO25TAB PO
[2017-01-04 12:38] LABS: BASO # 0.1 K/mm3 (0.0-0.2); BASO % 0.7 % (0.0-1.0); EOS # 0.2 K/mm3 (0.0-0.50); LARGE UNSTAINED CELL # 0.1 K/mm3 (0.0-0.4); LARGE UNSTAINED CELL % 0.9 % (0.0-4.0); LYMPH # 2.5 K/mm3 (1.5-4.5); LYMPH % 29.8 % (24.0-44.0); MEAN CORPUSCULAR HEMOGLOBIN 30.7 pg (27.0-33.0); MEAN CORPUSCULAR HGB CONC 33.1 g/dl (32.0-36.5); MEAN CORPUSCULAR VOLUME 92.8 fl (80.0-96.0); MONO # 0.5 K/mm3 (0.0-0.8); MONO % 6.5 % (0.0-5.0); NEUTROPHILS # 4.8 K/mm3 (1.8-7.7); NEUTROPHILS % 59.1 % (36.0-66.0); PLATELET COUNT, AUTOMATED 291 k/mm3 (150-450); RED CELL DISTRIBUTION WIDTH 13.3 % (11.5-14.5); WHITE BLOOD COUNT 8.1 K/mm3 (4.0-10.0)
[2017-01-04 12:59] LABS: ALBUMIN 3.9 GM/DL (3.2-5.2); ALBUMIN/GLOBULIN RATIO 1.15 (1.00-1.93); ALKALINE PHOSPHATASE 72 U/L (45-117); ALT/SGPT 19 U/L (12-78); ANION GAP 7 MEQ/L (8-16); AST/SGOT 7 U/L (15-37); BILIRUBIN,TOTAL 0.7 MG/DL (0.2-1.0); BLOOD UREA NITROGEN 24 MG/DL (7-18); CALCIUM LEVEL 9.5 MG/DL (8.8-10.2); CARBON DIOXIDE LEVEL 28 MEQ/L (21-32); CHLORIDE LEVEL 97 MEQ/L (98-107); CHOLESTEROL LEVEL 110 MG/DL (<200); CREATININE FOR GFR 1.12 MG/DL (0.70-1.30); GLOMERULAR FILTRATION RATE > 60.0 (>35); GLUCOSE, FASTING 279 MG/DL (83-110); POTASSIUM SERUM 4.9 MEQ/L (3.5-5.1); SODIUM LEVEL 132 MEQ/L (136-145); TOTAL PROTEIN 7.3 GM/DL (6.4-8.2); TRIGLYCERIDES LEVEL 83 MG/DL (<150); VITAMIN B12 LEVEL 494 PG/ML (247-911)
== END ==
LOC: M SFHCADAM 08:51
PROVIDERS: ATTEND Physician Assistant Medical
DX: E11.9 Type 2 diabetes mellitus without complications (principal); I10 Essential (primary) hypertension; I25.10 Atherosclerotic heart disease of native coronary artery without angina pectoris; E53.8 Deficiency of other specified B group vitamins; F02.81 Dementia in other diseases classified elsewhere, unspecified severity, with behavioral disturbance; Z79.84 Long term (current) use of oral hypoglycemic drugs; Z79.899 Other long term (current) drug therapy
CPT/HCPCS: 80053; 80061; 82306; 82607; 84443; 85025; G0463

== ENCOUNTER → 2017-07-24 | Outpatient (REF) | payer MEDICARE, OTHER ==
[2017-07-24 12:52] LABS: BASO % 0.6 % (0.0-1.0); EOS # 0.2 10^3/uL (0.0-0.50); EOS % 2.7 % (0.0-3.0); HEMATOCRIT 36.7 % (42.0-52.0); HEMOGLOBIN 11.7 g/dl (14.0-18.0); IMMATURE GRANULOCYTE % 0.6 % (0-0); LYMPH # 1.5 10^3/uL (1.5-4.5); LYMPH % 21.4 % (24.0-44.0); MEAN CORPUSCULAR HEMOGLOBIN 29.3 pg (27.0-33.0); MEAN CORPUSCULAR HGB CONC 31.9 g/dl (32.0-36.5); MONO # 0.6 10^3/uL (0.0-0.8); MONO % 8.4 % (0.0-5.0); NEUTROPHILS # 4.6 10^3/uL (1.8-7.7); NEUTROPHILS % 66.3 % (36.0-66.0); PLATELET COUNT, AUTOMATED 290 10^3/uL (150-450); RED BLOOD COUNT 3.99 10^6/uL (4.30-6.10); RED CELL DISTRIBUTION WIDTH 13.4 % (11.5-14.5); WHITE BLOOD COUNT 6.9 10^3/uL (4.0-10.0)
[2017-07-24 13:01] LABS: VITAMIN B12 LEVEL 913 PG/ML
[2017-07-24 13:15] LABS: ESTIMATED AVERAGE GLUCOSE 209 MG/DL (60-110); HEMOGLOBIN A1c 8.9 %
[2017-07-24 13:26] LABS: ALBUMIN 3.7 GM/DL (3.2-5.2); ALBUMIN/GLOBULIN RATIO 1.06 (1.00-1.93); ALKALINE PHOSPHATASE 82 U/L (45-117); ALT/SGPT 18 U/L (12-78); ANION GAP 9 MEQ/L (8-16); AST/SGOT 13 U/L (7-37); BILIRUBIN,TOTAL 0.4 MG/DL (0.2-1.0); BLOOD UREA NITROGEN 38 MG/DL (7-18); CALCIUM LEVEL 8.8 MG/DL (8.8-10.2); CARBON DIOXIDE LEVEL 26 MEQ/L (21-32); CHLORIDE LEVEL 101 MEQ/L (98-107); CHOLESTEROL LEVEL 73 MG/DL (<200); CHOLESTEROL RISK RATIO 1.738 (<5); CREATININE FOR GFR 1.32 MG/DL (0.70-1.30); GLOMERULAR FILTRATION RATE 54.7 (>35); GLUCOSE, FASTING 264 MG/DL (83-110); HDL CHOLESTEROL 42 MG/DL (>40); LDL CHOLESTEROL 18.8 MG/DL (<100); NON-HDL-C 31 MG/DL; SODIUM LEVEL 136 MEQ/L (136-145); TOTAL PROTEIN 7.2 GM/DL (6.4-8.2); TRIGLYCERIDES LEVEL 61 MG/DL (<150)
[2017-07-24 13:27] LABS: POTASSIUM SERUM 5.3 MEQ/L (3.5-5.1)
== END ==
LOC: M SFHCADAM 08:47
DX: Z00.00 Encounter for general adult medical examination without abnormal findings (principal); E11.9 Type 2 diabetes mellitus without complications; I25.10 Atherosclerotic heart disease of native coronary artery without angina pectoris; E53.8 Deficiency of other specified B group vitamins
CPT/HCPCS: 82746

== ENCOUNTER → 2018-02-19 | Outpatient (REF) | payer MEDICARE, OTHER ==
[2018-02-19 13:11] LABS: ALBUMIN 3.6 GM/DL (3.2-5.2); ALBUMIN/GLOBULIN RATIO 1.06 (1.00-1.93); ALKALINE PHOSPHATASE 77 U/L (45-117); ALT/SGPT 23 U/L (12-78); ANION GAP 10 MEQ/L (8-16); AST/SGOT 12 U/L (7-37); BILIRUBIN,TOTAL 0.7 MG/DL (0.2-1.0); BLOOD UREA NITROGEN 18 MG/DL (7-18); CALCIUM LEVEL 8.9 MG/DL (8.8-10.2); CARBON DIOXIDE LEVEL 26 MEQ/L (21-32); CHLORIDE LEVEL 104 MEQ/L (98-107); CREATININE FOR GFR 1.21 MG/DL (0.70-1.30); GLOMERULAR FILTRATION RATE > 60.0 (>35); GLUCOSE, FASTING 192 MG/DL (70-100); SODIUM LEVEL 140 MEQ/L (136-145)
[2018-02-19 14:05] LABS: ESTIMATED AVERAGE GLUCOSE 240 MG/DL (60-110)
== END ==
LOC: M SFHCADAM 08:38
DX: E11.9 Type 2 diabetes mellitus without complications (principal)
CPT/HCPCS: 80053

== ENCOUNTER → 2018-06-27 | Outpatient (REF) | payer MEDICARE, OTHER ==
[2018-06-27 13:14] LABS: BASO % 0.6 % (0.0-1.0); EOS # 0.2 10^3/uL (0.0-0.50); EOS % 3.7 % (0.0-3.0); HEMATOCRIT 37.6 % (42.0-52.0); HEMOGLOBIN 12.3 g/dl (13.5-17.5); IMMATURE GRANULOCYTE % 0.5 % (0-3.0); LYMPH # 1.7 10^3/uL (1.5-4.5); LYMPH % 26.4 % (24.0-44.0); MEAN CORPUSCULAR HEMOGLOBIN 30.8 pg (27.0-33.0); MEAN CORPUSCULAR HGB CONC 32.7 g/dl (32.0-36.5); MEAN CORPUSCULAR VOLUME 94.2 fl (80.0-96.0); MONO # 0.6 10^3/uL (0.0-0.8); MONO % 9.3 % (0.0-5.0); NEUTROPHILS # 3.7 10^3/uL (1.8-7.7); NEUTROPHILS % 59.5 % (36.0-66.0); PLATELET COUNT, AUTOMATED 243 10^3/uL (150-450); RED BLOOD COUNT 3.99 10^6/uL (4.30-6.10); RED CELL DISTRIBUTION WIDTH 12.3 % (11.5-14.5); WHITE BLOOD COUNT 6.3 10^3/uL (4.0-10.0)
[2018-06-27 13:28] LABS: ALBUMIN 3.3 GM/DL (3.2-5.2); ALBUMIN/GLOBULIN RATIO 1.06 (1.00-1.93); ALKALINE PHOSPHATASE 66 U/L (45-117); ALT/SGPT 23 U/L (12-78); ANION GAP 10 MEQ/L (8-16); AST/SGOT 10 U/L (7-37); BILIRUBIN,TOTAL 0.4 MG/DL (0.2-1.0); BLOOD UREA NITROGEN 23 MG/DL (7-18); CALCIUM LEVEL 8.2 MG/DL (8.8-10.2); CARBON DIOXIDE LEVEL 26 MEQ/L (21-32); CHLORIDE LEVEL 101 MEQ/L (98-107); CHOLESTEROL LEVEL 77 MG/DL (<200); CREATININE FOR GFR 1.33 MG/DL (0.70-1.30); GLOMERULAR FILTRATION RATE 54.1 (>35); GLUCOSE, FASTING 301 MG/DL (70-100); HDL CHOLESTEROL 35 MG/DL (>40); LDL CHOLESTEROL 28 MG/DL (<100); NON-HDL-C 42 MG/DL; POTASSIUM SERUM 5.3 MEQ/L (3.5-5.1); SODIUM LEVEL 137 MEQ/L (136-145); TOTAL 25(OH) VITAMIN D 23.5 NG/ML (30.0-100.0); TOTAL PROTEIN 6.4 GM/DL (6.4-8.2); TRIGLYCERIDES LEVEL 69 MG/DL (<150)
[2018-06-27 13:29] LABS: FOLATE 6.7 NG/ML; VITAMIN B12 LEVEL 934 PG/ML
[2018-06-27 14:01] LABS: ESTIMATED AVERAGE GLUCOSE 309 MG/DL (60-110); HEMOGLOBIN A1c 12.4 %
== END ==
LOC: M SFHCADAM 08:49
DX: I25.10 Atherosclerotic heart disease of native coronary artery without angina pectoris (principal); E11.9 Type 2 diabetes mellitus without complications; I10 Essential (primary) hypertension; Z79.899 Other long term (current) drug therapy
CPT/HCPCS: 82746

== ENCOUNTER → 2019-01-09 | Outpatient (REF) | payer MEDICARE, OTHER ==
[~2019-01-09] MED LIST changes: -ISOS120T4 PO; +ISOS120T7 PO; -SIMV10TA2 PO; +SIMV10TA21 PO
[2019-01-09 13:08] LABS: BASO # 0.1 10^3/uL (0.0-0.2); BASO % 0.7 % (0.0-1.0); EOS # 0.3 10^3/uL (0.0-0.50); EOS % 4.1 % (0.0-3.0); HEMATOCRIT 38.2 % (42.0-52.0); LYMPH # 1.5 10^3/uL (1.5-4.5); LYMPH % 21.5 % (24.0-44.0); MEAN CORPUSCULAR HEMOGLOBIN 29.9 pg (27.0-33.0); MEAN CORPUSCULAR HGB CONC 31.4 g/dl (32.0-36.5); MEAN CORPUSCULAR VOLUME 95.3 fl (80.0-96.0); MONO # 0.8 10^3/uL (0.0-0.8); MONO % 11.4 % (0.0-5.0); NEUTROPHILS # 4.3 10^3/uL (1.8-7.7); NEUTROPHILS % 61.9 % (36.0-66.0); PLATELET COUNT, AUTOMATED 276 10^3/uL (150-450); RED BLOOD COUNT 4.01 10^6/uL (4.30-6.10)
[2019-01-09 13:26] LABS: ALBUMIN 3.2 GM/DL (3.2-5.2); ALT/SGPT 14 U/L (12-78); BILIRUBIN,TOTAL 0.3 MG/DL (0.2-1.0); BLOOD UREA NITROGEN 28 MG/DL (7-18); CALCIUM LEVEL 9.2 MG/DL (8.8-10.2); CARBON DIOXIDE LEVEL 25 MEQ/L (21-32); CHLORIDE LEVEL 104 MEQ/L (98-107); CHOLESTEROL LEVEL 80 MG/DL (<200); CHOLESTEROL RISK RATIO 2.105 (<5); GLOMERULAR FILTRATION RATE > 60.0 (>35); GLUCOSE, FASTING 196 MG/DL (70-100); HDL CHOLESTEROL 38 MG/DL (>40); LDL CHOLESTEROL 29 MG/DL (<100); NON-HDL-C 42 MG/DL; POTASSIUM SERUM 5.1 MEQ/L (3.5-5.1); SODIUM LEVEL 139 MEQ/L (136-145); TOTAL PROTEIN 6.6 GM/DL (6.4-8.2); TRIGLYCERIDES LEVEL 66 MG/DL (<150); VITAMIN B12 LEVEL 723 PG/ML (247-911)
[2019-01-09 14:03] LABS: HEMOGLOBIN A1c 12.7 %
== END ==
LOC: M SFHCADAM 08:04
PROVIDERS: ATTEND Physician Assistant Medical
DX: Z00.00 Encounter for general adult medical examination without abnormal findings (principal); E11.9 Type 2 diabetes mellitus without complications; I10 Essential (primary) hypertension; E53.8 Deficiency of other specified B group vitamins
CPT/HCPCS: 80053; 80061; 82607; 83036; 85025; G0463

== ENCOUNTER → 2019-07-22 | Outpatient (REF) | payer MEDICARE, OTHER ==
[2019-07-22 12:27] LABS: BASO % 0.6 % (0.0-1.0); EOS # 0.2 10^3/uL (0.0-0.5); HEMATOCRIT 40.5 % (42.0-52.0); HEMOGLOBIN 12.4 g/dl (13.5-17.5); LYMPH # 1.7 10^3/uL (1.5-5.0); LYMPH % 25.4 % (24.0-44.0); MEAN CORPUSCULAR HGB CONC 30.6 g/dl (32.0-36.5); MEAN CORPUSCULAR VOLUME 97.8 fl (80.0-96.0); MONO # 0.5 10^3/uL (0.0-0.8); MONO % 8.1 % (0.0-5.0); NEUTROPHILS # 4.1 10^3/uL (1.5-8.5); NEUTROPHILS % 62.6 % (36.0-66.0); PLATELET COUNT, AUTOMATED 244 10^3/uL (150-450); RED BLOOD COUNT 4.14 10^6/uL (4.30-6.10); WHITE BLOOD COUNT 6.6 10^3/uL (4.0-10.0)
[2019-07-22 12:41] LABS: ALBUMIN 3.6 GM/DL (3.2-5.2); BILIRUBIN,TOTAL 0.5 MG/DL (0.2-1.0); CALCIUM LEVEL 9.2 MG/DL (8.8-10.2); CHOLESTEROL RISK RATIO 2.027 (<5); CREATININE FOR GFR 1.34 MG/DL (0.70-1.30); GLOMERULAR FILTRATION RATE 53.6 (>35); POTASSIUM SERUM 5.8 MEQ/L (3.5-5.1); THYROID STIMULATING HORMONE 2.01 uIU/ML (0.358-3.740); TOTAL PROTEIN 7.3 GM/DL (6.4-8.2)
[2019-07-22 12:46] LABS: HEMOGLOBIN A1c 10.7 %
== END ==
LOC: M SFHCADAM 09:00
PROVIDERS: ATTEND Physician Assistant Medical
DX: I11.0 Hypertensive heart disease with heart failure (principal); E53.8 Deficiency of other specified B group vitamins; E78.2 Mixed hyperlipidemia; Z79.899 Other long term (current) drug therapy
CPT/HCPCS: 80053; 80061; 83036; 83880; 84443; 85025; G0463

== ENCOUNTER → 2019-07-29 | Outpatient (REF) | payer MEDICARE, OTHER ==
[2019-07-29 13:59] LABS: CALCIUM LEVEL 9.3 MG/DL (8.8-10.2); CREATININE FOR GFR 1.7 MG/DL (0.70-1.30); GLOMERULAR FILTRATION RATE 40.7 (>35); POTASSIUM SERUM 4.7 MEQ/L (3.5-5.1)
== END ==
LOC: M SFHCADAM 09:19
PROVIDERS: ATTEND Physician Assistant Medical
DX: N18.3 Chronic kidney disease, stage 3 (moderate) (principal)

== ENCOUNTER → 2019-12-25 | Outpatient (REF) | payer MEDICARE, OTHER | LOC: M SFHCADAM 09:55 | PROVIDERS: ATTEND Physician Assistant Medical | DX: I25.10 Atherosclerotic heart disease of native coronary artery without angina pectoris (principal); E11.22 Type 2 diabetes mellitus with diabetic chronic kidney disease; N18.3 Chronic kidney disease, stage 3 (moderate) ==

== ENCOUNTER → 2020-12-31 | Outpatient (REF) | payer MEDICARE, OTHER ==
[2020-12-31 13:05] LABS: HEMATOCRIT 35.4 % (42.0-52.0); HEMOGLOBIN 11.1 g/dl (13.5-17.5); MEAN CORPUSCULAR HEMOGLOBIN 30.3 pg (27.0-33.0); MEAN CORPUSCULAR HGB CONC 31.4 g/dl (32.0-36.5); MEAN CORPUSCULAR VOLUME 96.7 fl (80.0-96.0); PLATELET COUNT, AUTOMATED 260 10^3/uL (150-450); RED BLOOD COUNT 3.66 10^6/uL (4.30-6.10); WHITE BLOOD COUNT 6.7 10^3/uL (4.0-10.0)
[2020-12-31 13:08] LABS: APPEARANCE, URINE CLEAR (CLEAR); BACTERIA, URINE AUTO NEGATIVE (NEGATIVE); BILIRUBIN, URINE AUTO NEGATIVE (NEGATIVE); BLOOD, URINE BLOOD NEGATIVE (NEGATIVE); COLOR, URINE YELLOW (YELLOW); GLUCOSE, URINE (UA) AUTO 3+ mg/dL (NEGATIVE); KETONE, URINE AUTO NEGATIVE (NEGATIVE); LEUKOCYTE ESTERASE, URINE AUTO NEGATIVE (NEGATIVE); MUCUS, URINE SMALL (NEGATIVE); NITRITE, URINE AUTO NEGATIVE (NEGATIVE); PROTEIN, URINE AUTO 1+ mg/dL (NEGATIVE); RBC, URINE AUTO 0 /HPF (0-3); SPECIFIC GRAVITY URINE AUTO 1.011 (1.002-1.035); SQUAMOUS EPITHELIAL CELL UR AU 0 /HPF (0-6); UROBILINOGEN, URINE AUTO 0.2 mg/dL (0.0-2.0); WBC, URINE AUTO 1 /HPF (0-3)
[2020-12-31 14:45] LABS: ALBUMIN 3.7 GM/DL (3.2-5.2); BILIRUBIN,TOTAL 0.4 MG/DL (0.2-1.0); CALCIUM LEVEL 9.3 MG/DL (8.8-10.2); CHOLESTEROL RISK RATIO 1.804 (<5); CREATININE FOR GFR 1.52 MG/DL (0.70-1.30); GLOMERULAR FILTRATION RATE 46.2 (>35); POTASSIUM SERUM 4.8 MEQ/L (3.5-5.1); TOTAL PROTEIN 7.2 GM/DL (6.4-8.2)
[2020-12-31 14:51] LABS: CREATININE, URINE 84.6 MG/DL; MAU/CREAT RATIO 135.9 MCG/MG (0.0-30.0)
[2020-12-31 16:04] LABS: HEMOGLOBIN A1c 9.2 %
== END ==
LOC: M SFHCADAM 08:41
PROVIDERS: ATTEND Physician Assistant Medical
DX: E78.2 Mixed hyperlipidemia (principal); E11.22 Type 2 diabetes mellitus with diabetic chronic kidney disease